=== PATIENT | male | born 1950 | race Two or more races ===

== ENCOUNTER 2021-07-07 22:08 | Inpatient (IN) | payer MEDICARE, BC ==
[~2021-07-07] VITALS: Ht 177.8 cm; Wt 83.9 kg
[2021-07-07] MEDS ORDERED: ACETAMINOPHEN ES 500 MG TABLET PO ONE (22:30)
[2021-07-07] MEDS ORDERED: ACETAMINOPHEN ES 500 MG TABLET ONE (22:30)
--- NOTE | 2021-07-07 22:35 | NUR ---
PATIENT BIBRA 99. C/O FEVER TODAY 99.9. PT HX OF LEUKEMIA W/ CHEMO. PATIENT IS A/O, RR EVEN AND UNLABORED, NO SOB NOTED. PATIENT CONNECTED TO VETERINARY MICROBIOLOGIST AND POX.
--- NOTE | 2021-07-07 22:46 | NUR ---
BLOOD WORK COLLECTED AND SENT TO LAB
--- NOTE | 2021-07-07 22:47 | NUR ---
URINE COLLECTED AND SENT TO LAB
--- NOTE | 2021-07-07 22:52 | NUR ---
COVID SWAB COLLECTED TO LAB
--- NOTE | 2021-07-07 23:04 | NUR ---
Note neyalexis in ED - 07/07/21 at 2306 by DODIE PT IS REFUSING A SECOND IV LINE AND BMP (BLOOD DRAW). HAD A LONG DISCUSSION WITH THE PT AT BED SIDE AND CONVIENCED THE PT FOR BMP. HOWEVER SHE'S STILL REFUSING THE SECOND LINE.
[2021-07-07 23:39] LABS: BILIRUBIN,URINE SMALL (NEGATIVE); COLOR,URINE YELLOW (YELLOW); LEUKOCYTE ESTERASE ,URINE NEGATIVE (NEGATIVE); NITRITE, URINE NEGATIVE (NEGATIVE); PROTEIN,URINE TRACE mg/dl (NEGATIVE); UGLUCOSE NEGATIVE (NEGATIVE); UROBILINOGEN,URINE 0.2 EU/dL (0.2)
[2021-07-08 00:06] LABS: ALBUMIN 2.4 g/dL (3.4-5.0); BILIRUBIN,DIRECT 0.2 mg/dL (0.0-0.2); BILIRUBIN,TOTAL 0.7 mg/dL (0.2-1.0); CALCIUM, SERUM 7.9 mg/dL (8.5-10.1); CREATININE 1.2 mg/dL (0.6-1.3); POTASSIUM 3.9 mmol/L (3.5-5.1); TOTAL PROTEIN, SERUM 7.6 g/dL (6.4-8.2)
[2021-07-08 00:32] LABS: BACTERIA,URINE None seen /HPF (None Seen); MUCUS,URINE Few /LPF (None Seen); RBC,URINE 0-2 /HPF (0-2); SQUAMOUS EPITHELIAL CELL,UR Few /HPF (None Seen); WBC,URINE 0-2 /HPF (0-3)
[2021-07-08 00:45] LABS: BASOPHILS % (AUTO) 0.1 % (0.0-2.0); EOSINOPHILS % (AUTO) 1.1 % (0.0-6.0); HEMATOCRIT 21 % (39-51); HEMOGLOBIN 7.4 g/dL (13.5-17.5); LYMPHOCYTES # (AUTO) 0.7 K/uL (0.8-4.8); LYMPHOCYTES % (AUTO) 23.4 % (20.0-44.0); MEAN CORPUSCULAR HGB CONC 36 g/dl (31.0-36.0); MEAN CORPUSCULAR VOLUME 104 fL (80-96); MONOCYTES # (AUTO) 1.4 K/uL (0.1-1.30); MONOCYTES % (AUTO) 51.3 % (2.0-12.0); NEUTROPHILS # (AUTO) 0.7 K/uL (1.8-8.9); NEUTROPHILS % (AUTO) 24.1 % (43.0-81.0); PLATELET COUNT (AUTO) 119 K/uL (150-450); RED BLOOD CELL COUNT(AUTO) 2.01 MIL/uL (4.5-6.0); WHITE BLOOD COUNT (AUTO) 2.8 K/uL (4.3-11.0)
--- NOTE | 2021-07-08 01:17 | NUR ---
ORAL TEMP 98.0
[2021-07-08] MEDS ORDERED: CEFEPIME 1 GM VIAL ONE (02:17)
[2021-07-08] MEDS: CEFEPIME 2 GM in IV D5W 100 ML IV SCH ×3 (02:23→18:18)
[2021-07-08] MEDS ORDERED: ACETAMINOPHEN 325 MG TABLET PO PRN (03:30)
[2021-07-08] MEDS ORDERED: ONDANSETRON HCL/PF 4 MG/2 ML VIAL IVP PRN (03:30)
[2021-07-08] MEDS ORDERED: ENOXAPARIN SODIUM 40 MG/0.4 ML DISP.SYRIN SQ ONE (04:46)
[2021-07-08] MEDS: ENOXAPARIN SODIUM 40 MG/0.4 ML DISP.SYRIN SQ SCH ×2 (04:47→20:24)
[2021-07-08 05:51] LABS: BAND % (MANUAL) 4 % (0.0-5.0); LYMPHOCYTES % (MANUAL) 18 % (16-48); METAMYELOCYTES % 4 % (0-0); MONOCYTES % (MANUAL) 42 % (0-11.0); MYELOCYTES % 4 % (0-0); NEUTROPHILS % (MANUAL) 24 (42-76); PROMYELOCYTES % 1 % (0-0); REACTIVE LYMPHOCYTES 3 % (0-0)
[2021-07-08 06:21] LABS: BASOPHILS % (AUTO) 0.1 % (0.0-2.0); HEMATOCRIT 22 % (39-51); HEMOGLOBIN 7.7 g/dL (13.5-17.5); LYMPHOCYTES # (AUTO) 0.8 K/uL (0.8-4.8); LYMPHOCYTES % (AUTO) 27.3 % (20.0-44.0); MEAN CORPUSCULAR HGB CONC 35 g/dl (31.0-36.0); MEAN CORPUSCULAR VOLUME 104 fL (80-96); MONOCYTES # (AUTO) 1.4 K/uL (0.1-1.30); NEUTROPHILS # (AUTO) 0.6 K/uL (1.8-8.9); NEUTROPHILS % (AUTO) 21.6 % (43.0-81.0); PLATELET COUNT (AUTO) 125 K/uL (150-450); RED BLOOD CELL COUNT(AUTO) 2.07 MIL/uL (4.5-6.0); WHITE BLOOD COUNT (AUTO) 2.8 K/uL (4.3-11.0)
[2021-07-08 07:30] LABS: CALCIUM, SERUM 8.9 mg/dL (8.5-10.1); CREATININE 1.1 mg/dL (0.6-1.3); MAGNESIUM 2.2 mg/dL (1.8-2.4); PHOSPHORUS 3.9 mg/dL (2.5-4.9); POTASSIUM 3.6 mmol/L (3.5-5.1)
[2021-07-08] MEDS ORDERED: NEBI5TAB8 PO (08:37)
[2021-07-08] MEDS: IV NS 0.9% 1,000 ML IV PRN (12:13)
--- NOTE | 2021-07-08 12:15 | NUR ---
RAC #20G S/L NS @ 75ML/HR; PATENT AND INTACT. OFFERED PATIENT LUNCH. VSS. ALL NEEDS MET AT THIS TIME
--- NOTE | 2021-07-08 14:36 | NUR ---
LAC #20G S/L; PATENT AND INTACT
[2021-07-08 14:49] LABS: LYMPHOCYTES % (MANUAL) 32 % (16-48); METAMYELOCYTES % 1 % (0-0); MONOCYTES % (MANUAL) 45 % (0-11.0); MYELOCYTES % 3 % (0-0); NEUTROPHILS % (MANUAL) 19 (42-76)
[2021-07-08] MEDS ORDERED: VENE100T PO (14:58)
--- NOTE | 2021-07-08 15:01 | NUR ---
UPDATED CAMILO (DAUGHTER) [phone] - [phone]
--- NOTE | 2021-07-08 16:45 | NUR ---
BED [id number]
--- NOTE | 2021-07-08 16:49 | NUR ---
CITY COLLECTOR AT PT'S BEDSIDE. GAVE HOME MEDS BYSTOLIC TO COLLIN BAEZ NURSE; MEDS WILL BE LEFT AT [facility].
--- NOTE | 2021-07-08 16:56 | NUR ---
ENDORSED CARE TO ELBA ANTONIO RN
--- NOTE | 2021-07-08 17:10 | NUR ---
ALICIA NEEDLE LOOM SETTER AT PT'S BEDSIDE
--- NOTE | 2021-07-08 17:16 | NUR ---
PT TRANSFERRED TO MS2 201 VIA ACLS PROTOCOL. ALL BELONGINGS WITH PT. VSS. PT ON NEURTROPENIC ISOLATION PRECAUTIONS AND ENDORSED TO RN AND HEAD RESIDENT.
--- NOTE | 2021-07-08 17:22 | NUR ---
LEFT VOICE MESSAGE TO CAMILO (DAUGHTER) [phone] - [phone] THAT PT TRANSFERRED TO 201
--- NOTE | 2021-07-08 17:25 | NUR ---
RN NOTES PATIENT TRANSFERRED TO DE-2 AT ROOM 201 VIA [facility], ACCOMPANIED BY 2 ER NURSES. PATIENT ABLE TO AMBULATE [place].
[2021-07-08] MEDS ORDERED: DOSE PER PHARMACY MICAFUNGIN 1 EA XX SCH (17:30)
[2021-07-08] MEDS ORDERED: CEFEPIME 1 GM in IV D5W 50 ML IV SCH (17:30)
[2021-07-08 17:40] LABS: D-DIMER 1.41 mg/L(FEU (0.17-0.50)
[2021-07-08] MEDS ORDERED: MICAFUNGIN SODIUM 100 MG in IV NS 0.9% 100 ML IV SCH (18:00)
[2021-07-08 18:10] LABS: URIC ACID 3.6 mg/dL (2.6-7.2)
[2021-07-08] MEDS: ACYCLOVIR 800 MG TABLET PO SCH (18:17)
[2021-07-08] MEDS: TBO-FILGRASTIM 480 MCG/0.8 ML ML SQ SCH (18:18)
[2021-07-08] MEDS: VANCOMYCIN 1 GM in IV D5W 250ml IV SCH (19:01)
--- NOTE | 2021-07-08 19:04 | NUR ---
RN NOTES ADMITTED THIS 71-Y.O. PATIENT FROM ER W/ CHIEF COMPLAINT OF FEVER AND ADMITTING DX OF ACUTE ANEMIA, NO BLEEDING NOTED. PATIENT IS A/O X3 CHINESE-SPEAKING, UNDERSTANDS GUINEAN AND ABLE TO MAKE NEEDS KNOWN. IV LINES INTACT AND PATENT. SKIN IS INTACT. AMBULATES W/ STAND-BY ASSIST, WENT TO THE BATHROOM, ABLE TO URINATE. ORIENTED PATIENT TO ROOM AND USE OF CALL LIGHT BUTTON FOR STAFF ASSISTANCE. SAFETY MEASURES IN PLACE. ENDORSED TO KID CLUB ATTENDANT RN FOR RANDOLPH.
[2021-07-08] MEDS: MICAFUNGIN SODIUM 100 MG in IV NS 0.9% 100 ML IV SCH (19:35)
[2021-07-08 20:00] VITALS: BP 144/76
[2021-07-08 22:00] VITALS: BP 144/76
[2021-07-09] VITALS: BP 99/65
[2021-07-09] MEDS: CEFEPIME 2 GM in IV D5W 100 ML IV SCH ×3 (01:51→16:46)
--- NOTE | 2021-07-09 02:06 | NUR ---
IV ON THE LEFT HAND PULLED OUT BY THE PATIENT.
[2021-07-09 04:00] VITALS: BP 91/58
[2021-07-09] MEDS: IV NS 0.9% 1,000 ML IV PRN (05:25)
[2021-07-09] MEDS: VANCOMYCIN 1 GM in IV D5W 250ml IV SCH ×2 (05:25→18:29)
[2021-07-09 06:43] LABS: BASOPHILS % (AUTO) 0.1 % (0.0-2.0); EOSINOPHILS % (AUTO) 0.1 % (0.0-6.0); HEMATOCRIT 21 % (39-51); HEMOGLOBIN 7.5 g/dL (13.5-17.5); LYMPHOCYTES # (AUTO) 0.6 K/uL (0.8-4.8); LYMPHOCYTES % (AUTO) 12.9 % (20.0-44.0); MEAN CORPUSCULAR HGB CONC 35 g/dl (31.0-36.0); MEAN CORPUSCULAR VOLUME 105 fL (80-96); MONOCYTES % (AUTO) 43.7 % (2.0-12.0); NEUTROPHILS % (AUTO) 43.2 % (43.0-81.0); PLATELET COUNT (AUTO) 120 K/uL (150-450); RED BLOOD CELL COUNT(AUTO) 2.02 MIL/uL (4.5-6.0); WHITE BLOOD COUNT (AUTO) 4.6 K/uL (4.3-11.0)
[2021-07-09 07:15] LABS: CALCIUM, SERUM 8.6 mg/dL (8.5-10.1); POTASSIUM 3.7 mmol/L (3.5-5.1)
--- NOTE | 2021-07-09 07:30 | NUR ---
RN OPENING NOTE RECEIVED PATIENT RESTING IN BED A/O X 3. ON ROOM AIR, PATIENT REMOVED IV ON LAC. NO CURRENT COMPLAINTS OF PAIN OR SOB. ALL SAFETY MEASURE IN PLACE, CALL LIGHT WITHIN REACH BED IN THE LOWEST POSITION AND 2 SIDE RAILS UP, BED ALARM ACTIVATED.
[2021-07-09] MEDS: BYSTOLIC 5 MG PO SCH (08:03)
[2021-07-09] MEDS: ACYCLOVIR 800 MG TABLET PO SCH ×2 (08:03→16:46)
[2021-07-09 08:55] LABS: BILIRUBIN,DIRECT 0.2 mg/dL (0.0-0.2); BILIRUBIN,TOTAL 0.7 mg/dL (0.2-1.0); TOTAL PROTEIN, SERUM 6.7 g/dL (6.4-8.2)
[2021-07-09 12:00] VITALS: BP 96/61
[2021-07-09 16:00] VITALS: BP 92/65
--- NOTE | 2021-07-09 16:41 | NUR ---
RN NOTE SECOND ATTEMPT TO REACH FAMILY REGARDING PATIENTS MEDICATION BYSTOLIC. LEFT MESSAGE AGAIN FOR FAMILY TO CALL BACK. PATIENTS FAMILY NEEDS TO BRING MEDICATION FROM HOME
[2021-07-09] MEDS: TBO-FILGRASTIM 480 MCG/0.8 ML ML SQ SCH (16:46)
[2021-07-09] MEDS ORDERED: VENETOCLAX 100 MG PO SCH (17:00)
--- NOTE | 2021-07-09 18:55 | NUR ---
RN CLOSING NOTE RECEIVED PATIENT RESTING IN BED A/O X 2. ON ROOM AIR, RIGHT AC 24 G RUNNING 75ML/ HR OF NS. NO CURRENT COMPLAINTS OF PAIN OR SOB. PATIENT IN RESTRAINTS DUE TO INTERFERENCE WITH MEDICAL INTERVENTIONS. ALL SCHEDULED MEDICATION WERE GIVEN. ALL SAFETY MEASURE IN PLACE, CALL LIGHT WITHIN REACH BED IN THE LOWEST POSITION AND 2 SIDE RAILS UP, BED ALARM ACTIVATED. WILL ENDORSE TO NIGHT NURSE FOR RANDOLPH.
--- NOTE | 2021-07-09 19:40 | NUR ---
SUPERVISOR METER REPAIR SHOP OPENING NOTE PATIENT AWAKE IN BED, ALERT/ORIENTED X 1-2, PT CONFUSED AT TIMES. PT STABLE ON RA, NO S/S OF DISTRESS OR SOB NOTED, BREATHING EVEN AND UNLABORED. PATIENT ON EXTERNAL LEAD PERSON READING A PACING. IV ACCESS ON RIGHT AC #24 G INTACT AND RUNNING NS @ 75 ML/HR. PATIENT ON BILATERAL SOFT WRIST RESTRAINTS, ASSESSED SKIN FOR REDNESS AND REMOVED RESTRAINTS FOR A COUPLE MINUTES. SAFETY MEASURES IN PLACE: CALL LIGHT WITHIN REACH, SIDE RAILS UP X 2, BED LOCKED IN LOW POSITION, BED ALARM ON. WILL CONTINUE TO MONITOR PATIENT
[2021-07-09 20:00] VITALS: BP 135/51
[2021-07-09] MEDS: MICAFUNGIN SODIUM 100 MG in IV NS 0.9% 100 ML IV SCH (20:14)
[2021-07-09 21:36] LABS: BAND % (MANUAL) 2 % (0.0-5.0); LYMPHOCYTES % (MANUAL) 31 % (16-48); MONOCYTES % (MANUAL) 21 % (0-11.0); NEUTROPHILS % (MANUAL) 46 (42-76)
[2021-07-10] VITALS: BP 127/80
[2021-07-10] MEDS: ENOXAPARIN SODIUM 40 MG/0.4 ML DISP.SYRIN SQ SCH ×2 (00:07→21:38)
[2021-07-10] MEDS: CEFEPIME 2 GM in IV D5W 100 ML IV SCH ×3 (01:50→16:57)
[2021-07-10 04:00] VITALS: BP 130/72
--- NOTE | 2021-07-10 07:30 | NUR ---
TELE CLOSING NOTES PATIENT AWAKE IN BED, ALERT/ORIENTED X 1-2, PT CONFUSED AT TIMES AND ATTEMPTS TO GET OUT OF BED. PT STABLE ON RA, NO S/S OF DISTRESS OR SOB NOTED, BREATHING EVEN AND UNLABORED. PATIENT ON EXTERNAL PRODUCT DEVELOPMENT ASSISTANT READING SINUS RHYTHM WITH PAC'S AND PVC'S, HR: 86. IV ACCESS ON RIGHT AC #24 G INTACT AND RUNNING NS @ 75 ML/HR. PATIENT ON BILATERAL SOFT WRIST RESTRAINTS, ASSESSED SKIN FOR REDNESS AND REMOVED RESTRAINTS THROUGHOUT SHIFT. MEDICATIONS GIVEN ORDERED, PT NEEDS MET THROUGHOUT SHIFT. VANCO TROUGH STILL PENDING, ENDORSED VANCO ADMINISTRATION TO DAY SHIFT NURSE. SAFETY MEASURES IN PLACE: CALL LIGHT WITHIN REACH, SIDE RAILS UP X 2, BED LOCKED IN LOW POSITION, BED ALARM ON. WILL CONTINUE TO MONITOR PATIENT. ENDORSED TO DAY SHIFT NURSE FOR CONTINUITY OF CARE
--- NOTE | 2021-07-10 07:30 | NUR ---
LOAN ADVISER OPENING NOTES RECEIVED PATIENT ON BED AND A/O X1-2 WITH EPISODES OF CONFUSION. ON ROOM AIR TOLERATING WELL. NO SOB NOTED. NOT IN DISTRESS. WITH NO COMPLAINTS OF PAIN AT THIS TIME. WITH IV ACCESS AT RIGHT AC G24 WITH NS AT 75ML/HR. SAFETY MEASURES IN PLACED. CALL LIGHT WITHIN REACH. BED ON LOWEST LOCKED POSITION, SIDE RAILS UP X2. WILL CONTINUE TO MONITOR.
[2021-07-10 08:00] VITALS: BP 89/63
[2021-07-10] MEDS: VANCOMYCIN 1 GM in IV D5W 250ml IV SCH ×2 (08:40→17:54)
[2021-07-10] MEDS: ACYCLOVIR 800 MG TABLET PO SCH ×2 (08:41→16:58)
[2021-07-10] MEDS: BYSTOLIC 5 MG PO SCH (08:41)
[2021-07-10] MEDS ORDERED: Medication Not On Formulary EA (Nebivolol Hcl (Bystolic) 5 MG) PO SCH (09:00)
[2021-07-10 10:27] LABS: HEMOGLOBIN 8.5 g/dL (13.5-17.5); RED BLOOD CELL COUNT(AUTO) 2.33 MIL/uL (4.5-6.0)
[2021-07-10 11:19] LABS: HEMATOCRIT 25 % (39-51); MEAN CORPUSCULAR HGB CONC 35 g/dl (31.0-36.0); MEAN CORPUSCULAR VOLUME 106 fL (80-96); PLATELET COUNT (AUTO) 143 K/uL (150-450); WHITE BLOOD COUNT (AUTO) 12.2 K/uL (4.3-11.0)
[2021-07-10 12:43] LABS: BAND % (MANUAL) 3 % (0.0-5.0); LYMPHOCYTES % (MANUAL) 20 % (16-48); METAMYELOCYTES % 1 % (0-0); MONOCYTES % (MANUAL) 23 % (0-11.0); MYELOCYTES % 2 % (0-0); NEUTROPHILS % (MANUAL) 51 (42-76)
[2021-07-10] MEDS: IV NS 0.9% 1,000 ML IV PRN (13:55)
[2021-07-10 16:00] VITALS: BP 98/73
[2021-07-10 17:40] LABS: CALCIUM, SERUM 8.6 mg/dL (8.5-10.1); CARBON DIOXIDE 17 mmol/L (21-32); CHLORIDE 103 mmol/L (98-107); CREATININE 1.4 mg/dL (0.6-1.3); GLUCOSE 135 mg/dL (74-106); POTASSIUM 3.9 mmol/L (3.5-5.1); SODIUM SERUM 138 mmol/L (136-145); UREA NITROGEN, BLOOD 21 mg/dL (7-18)
--- NOTE | 2021-07-10 18:21 | NUR ---
CANDY ROLLER CLOSING NOTES PATIENT RESTING ON BED AND A/O X1-2 WITH EPISODES OF CONFUSION. ON ROOM AIR TOLERATING WELL. NO SOB NOTED. NOT IN DISTRESS. WITH NO COMPLAINTS OF PAIN AT THIS TIME. WITH IV ACCESS AT RIGHT HAND G22, SALINE LOCKED, PATENT AND INTACT AND AT LEFT UPPER ARM MIDLINE G18 WITH NS AT 75ML/HR INFUSING WELL. ON TELE MONITOR CURRENTLY READING SINUS RHYTHM AT 92BPM. DUE MEDS GIVEN. FOR DISCHARGE, AWAITING FOR O2 DELIVERY. SAFETY MEASURES IN PLACED. CALL LIGHT WITHIN REACH. BED ON LOWEST LOCKED POSITION, SIDE RAILS UP X2. WILL ENDORSE TO NEXT SHIFT FOR RANDOLPH.
--- NOTE | 2021-07-10 19:35 | NUR ---
CLIMATOLOGY PROFESSOR NOTES SR-96 ON TELE MONITOR,ON BED ON HIGH FOWLERS POSITION,BREATHING NON LABORED,975 ROOM AIR,WITH RIGHT UPPER ARM MIDLINE INFUSING NS75ML/HR RATE,RIGHT HAND SALINE LOCK INTACT AND PATENT.SLEEPING,AROUSABLE TO VERBAL STIMULI,WITH EPISODE OF CONFUSION,PLAN LUMBAR PUCTURE TO R/O CONFUSION, MENTAL STATUS DOES NOT IMPROVE,WILL CONTINUE TO MONITOR STATUS.
[2021-07-10] MEDS: MICAFUNGIN SODIUM 100 MG in IV NS 0.9% 100 ML IV SCH (19:37)
[2021-07-10 20:00] VITALS: BP 104/72
[2021-07-10 20:16] VITALS: BP 104/72
[2021-07-11] VITALS: BP 107/61
[2021-07-11] MEDS: CEFEPIME 2 GM in IV D5W 100 ML IV SCH ×3 (01:15→16:45)
[2021-07-11 04:00] VITALS: BP_SYST 107; BP_SYST 92; BP_DIAS 61
[2021-07-11] MEDS: VANCOMYCIN 1 GM in IV D5W 250ml IV SCH ×2 (05:24→17:40)
--- NOTE | 2021-07-11 06:15 | NUR ---
SHIFT BOSS NOTES ALL DUE IV MEDS ADMINISTERED,REMAINS CONFUSED.PLANNED XRAY LUMBAR PUNTURE AND SENT CSF FLUIDS TO LAB FOR CYTOLOGY,NEEDS CONSENT FOR THE PROCEDURE.PATIENT CONFUSED,CANT SIGNED.WILL ENDORSE TO VIRGIE FERRARA FOR RANDOLPH.
--- NOTE | 2021-07-11 07:46 | NUR ---
RAILROAD POLICE OPENING NOTES RECEIVED PATIENT IN BED, AWAKE, CONFUSED, ON BILATERAL SOFT WRIST RESTRAINS. PATIENT ON OXYGEN THERAPY AT 2 LPM VIA NASAL CANNULA; BREATHING EVEN AND UNLABORED; NO SOB NOTED. NO S/S OF PAIN SUCH FACIAL GRIMACING, MOANING OR GUARDING. TELE MONITOR WITH A CURRENT READING OF SR 90. SAMANTHA MIDLINE PRESENT AND INTACT RUNNING NS @ 75 MLS/HR. SAFETY PRECAUTIONS IN PLACE; BED IN LOW POSITION AND LOCKED, RAILS UP X2, CALL LIGHT WITHIN REACH. WILL CONTINUE TO MONITOR PATIENT.
[2021-07-11 08:00] VITALS: BP 106/67
[2021-07-11 08:15] LABS: HEMATOCRIT 22 % (39-51); HEMOGLOBIN 7.5 g/dL (13.5-17.5); MEAN CORPUSCULAR HGB CONC 34 g/dl (31.0-36.0); MEAN CORPUSCULAR VOLUME 106 fL (80-96); PLATELET COUNT (AUTO) 137 K/uL (150-450); RED BLOOD CELL COUNT(AUTO) 2.09 MIL/uL (4.5-6.0); WHITE BLOOD COUNT (AUTO) 11.1 K/uL (4.3-11.0)
[2021-07-11] MEDS: BYSTOLIC 5 MG PO SCH (08:43)
[2021-07-11] MEDS: ACYCLOVIR 800 MG TABLET PO SCH ×2 (08:49→17:00)
[2021-07-11] MEDS ORDERED: LORAZEPAM INJ 2 MG/ML VIAL IV ONE (10:00)
[2021-07-11 12:00] VITALS: BP 101/62
--- NOTE | 2021-07-11 14:22 | NUR ---
CARBON FURNACE OPERATOR HELPER NOTES PATIENT NOTED ON MONITOR GOING INTO HIGH HR OF 130S 140S FOR A FEW SECONDS AND THEN COMING BACK DOWN TO NSR 80S 90S. MD NOTIFIED. STAT EKG ORDERED.
[2021-07-11 14:28] LABS: CSF GLUCOSE 91 mg/dL (40-70)
--- NOTE | 2021-07-11 15:17 | NUR ---
MS RN NOTES EKG READINGS SENT TO MD AND LITHOGRAPHER HELPER DR SANTOS. PER CARDIOLOGY TO START METOPROLOL 50 EVERY 6 HRS.
[2021-07-11] MEDS: METOPROLOL TARTRATE 50 MG TABLET PO SCH ×2 (15:40→18:00)
[2021-07-11 16:00] VITALS: BP 111/79
[2021-07-11] MEDS: ENSURE ENLIVE 237 ML LIQUID (VANILLA) PO SCH (16:03)
--- NOTE | 2021-07-11 18:57 | NUR ---
RESIDENTIAL REAL ESTATE AGENT CLOSING NOTES PATIENT IN BED, ASLEEP, CONFUSED, ON BILATERAL SOFT WRIST RESTRAINS. PATIENT ON OXYGEN THERAPY AT 2 LPM VIA NASAL CANNULA; BREATHING EVEN AND UNLABORED WITH PERIODS OF LABORED BREATHING . NO S/S OF PAIN SUCH FACIAL GRIMACING, MOANING OR GUARDING DURING THE DAY. TELE MONITOR WITH A CURRENT READING OF SR -ST 83-145 . SAMANTHA MIDLINE PRESENT AND INTACT RUNNING NS @ 75 MLS/HR. ALL NEEDS ATTENDED DURING THE DAY. SAFETY PRECAUTIONS IN PLACE; BED IN LOW POSITION AND LOCKED, RAILS UP X2, CALL LIGHT WITHIN REACH. WILL ENDORSE TO FLATCAR WHACKER NURSE FOR RANDOLPH.
--- NOTE | 2021-07-11 19:10 | NUR ---
RN NOTES RECEIVED REPORT FROM MORNING RN. PATIENT IN BED A/O X1 OPENS EYES. ON OXYGEN AT 2LPM VIA NASAL CANULA TOLERATING WELL SATING 95%. WITH SAMANTHA MIDLINE [ATENT FLUSHES WELL. WITH ONGOING IVF OF PNS @75CC/HR. VITAL SIGNS TAKEN AND RECORDED AFEBRILE. WITH BILATERAL SOFT RESTRAINTS IN PLACE. ALL SAFETY MEASURES IN PLACE. HOB ELEVATED. CALL LIGHT WITHIN REACH. BED ON LOWEST POSITION AND LOCKED. SIDERAILS UP FOR SAFETY. WILL MONITOR PATIENT CLOSELY.
[2021-07-11 20:00] VITALS: BP 105/70
[2021-07-11] MEDS: MICAFUNGIN SODIUM 100 MG in IV NS 0.9% 100 ML IV SCH (20:21)
[2021-07-11] MEDS: ENOXAPARIN SODIUM 40 MG/0.4 ML DISP.SYRIN SQ SCH (21:23)
[2021-07-11 22:16] LABS: BAND % (MANUAL) 2 % (0.0-5.0); LYMPHOCYTES % (MANUAL) 17 % (16-48); METAMYELOCYTES % 2 % (0-0); MONOCYTES % (MANUAL) 28 % (0-11.0); MYELOCYTES % 1 % (0-0); NEUTROPHILS % (MANUAL) 50 (42-76)
[2021-07-11] MEDS: IV NS 0.9% 1,000 ML IV PRN (22:56)
[2021-07-12] VITALS: BP 96/68
[2021-07-12] MEDS: CEFEPIME 2 GM in IV D5W 100 ML IV SCH ×3 (02:39→17:22)
[2021-07-12 04:00] VITALS: BP 98/68
--- NOTE | 2021-07-12 05:30 | NUR ---
RN NOTES CALLED LABORATORY SPOKE TO HORACE PATIENT HAS AN ORDER FOR VANCO TROUGH @5AM HE SAID HE WILL CALL THE CLAIMS COLLECTOR TO COME AND DRAW BLOOD.
[2021-07-12] MEDS: METOPROLOL TARTRATE 50 MG TABLET PO SCH ×5 (06:00→23:48)
--- NOTE | 2021-07-12 06:10 | NUR ---
RN NOTES CALLED LABORATORY FOR 2ND TIME SPOKE TO MARIO ABOUT VANCO TROUGH SAID SHE WILL INFORMED THE MORNING LAB MANAGER TO COME AND DRAW BLOOD. WILL CONTINUE TO MONITOR
--- NOTE | 2021-07-12 06:38 | NUR ---
RN NOTES PATIENT IN BED OPENS EYES WHEN CALLED. STILL ON OXYGEN INHALATION AT 4LPM VIA NC SATING 95%. ALL DUE MEDS GIVEN ORDERED. PATIENT STILL HAS AN EPISODE OF ELEVATED HR FROM 120'S THEN GOES BACK TO SR. PATIENT HAS AN PACEMAKER. PATIENT STILL ON RESTRAINTS. FREQUENT VISUAL MONITORING RENDERED. ALL SAFETY MEASURES IN PLACE AT ALL TIMES. HOB ELEVATED. CALL LIGHT WITHIN REACH SIDE RAILS UP FOR SAFETY. ENDORSED.
--- NOTE | 2021-07-12 07:30 | NUR ---
RN OPENING NOTES RECEIVED PATIENT IN BED SLEEPING. BREATHING EVEN AND UNLABORED. NO OSB OR ANY ACUTE DISTRESS NOTED. ON OXYGEN AT 2LPM VIA NASAL CANULA TOLERATING WELL SATING 95%. WITH SAMANTHA MIDLINE PATENT FLUSHES WELL. WITH ONGOING IVF OF NS @75CC/HR. WITH BILATERAL SOFT RESTRAINTS IN PLACE. ALL APPLICABLE ISOLATION PRECAUTIONS IN PLACE. ALL SAFETY MEASURES IN PLACE. HOB ELEVATED. CALL LIGHT WITHIN REACH. BED ON LOWEST POSITION AND LOCKED. SIDERAILS UP FOR SAFETY. WILL MONITOR PATIENT CLOSELY.
[2021-07-12 08:00] VITALS: BP 95/65
[2021-07-12] MEDS: ACYCLOVIR 800 MG TABLET PO SCH (08:35)
[2021-07-12] MEDS: BYSTOLIC 5 MG PO SCH (08:35)
[2021-07-12] MEDS: ENSURE ENLIVE 237 ML LIQUID (VANILLA) PO SCH ×2 (08:42→17:52)
[2021-07-12 09:23] LABS: HEMATOCRIT 23 % (39-51); HEMOGLOBIN 7.7 g/dL (13.5-17.5); LYMPHOCYTES # (AUTO) 0.6 K/uL (0.8-4.8); NEUTROPHILS # (AUTO) 2.1 K/uL (1.8-8.9)
[2021-07-12 09:25] LABS: BASOPHILS % (AUTO) 0.4 % (0.0-2.0); EOSINOPHILS % (AUTO) 1.3 % (0.0-6.0); MEAN CORPUSCULAR HGB CONC 34 g/dl (31.0-36.0); MEAN CORPUSCULAR VOLUME 107 fL (80-96); MONOCYTES % (AUTO) 51.5 % (2.0-12.0); NEUTROPHILS % (AUTO) 36.8 % (43.0-81.0); PLATELET COUNT (AUTO) 108 K/uL (150-450); RED BLOOD CELL COUNT(AUTO) 2.15 MIL/uL (4.5-6.0); WHITE BLOOD COUNT (AUTO) 5.7 K/uL (4.3-11.0)
[2021-07-12] MEDS: DEXAMETHASONE SOD PHOSPHATE 10 MG/ML VIAL IV SCH (09:44)
[2021-07-12 10:11] LABS: LYMPHOCYTES % (MANUAL) 18 % (16-48); MONOCYTES % (MANUAL) 41 % (0-11.0); NEUTROPHILS % (MANUAL) 41 (42-76)
[2021-07-12 11:54] LABS: ALBUMIN 1.6 g/dL (3.4-5.0); BILIRUBIN,DIRECT 0.2 mg/dL (0.0-0.2); BILIRUBIN,TOTAL 0.7 mg/dL (0.2-1.0); CALCIUM, SERUM 8.3 mg/dL (8.5-10.1); CALCIUM, SERUM 9.1 mg/dL (8.5-10.1); CREATININE 1.3 mg/dL (0.6-1.3); POTASSIUM 4.1 mmol/L (3.5-5.1); TOTAL PROTEIN, SERUM 6.6 g/dL (6.4-8.2)
[2021-07-12 12:00] VITALS: BP 97/73
--- NOTE | 2021-07-12 14:15 | NUR ---
RN NOTES RECEIVED REPORT FROM LAB OF TROPONIN LEVEL 23.255. INFORMED DR. KAMARA OF RESULT, NO NEW ORDER AT THE TIME.
--- NOTE | 2021-07-12 15:27 | NUR ---
RN NOTE CALLED [facility] OFFICE, OFFICE IS CLOSE ON WEEKEND.
[2021-07-12 16:00] VITALS: BP 93/63
[2021-07-12] MEDS ORDERED: REMDESIVIR (CHARGED) 200 MG, *LOADING DOSE 1 EA in IV NS 0.9% 210 ML IV ONE (16:00)
--- NOTE | 2021-07-12 18:51 | NUR ---
RN CLOSING NOTES PATIENT REMAINS IN STABLE CONDITION THROUGHOUT SHIFT. BREATHING EVEN AND UNLABORED. NO SOB OR ANY ACUTE DISTRESS NOTED. ON O2 2LPM VIA NC, TOLERATING WELL SAT OF 94%. KEPT PATIENT CLEAN, DRY AND COMFORTABLE. ALL NEEDS MET. ALL DUE MEDS GIVEN ORDERED. ALL APPLICABLE ISOLATION PRECAUTIONS MAINTAINED. ALL SAFETY MEASURES IMPLEMENTED. HOB ELEVATED. CALL LIGHT WITHIN REACH. BED LOCKED AND IN LOWEST POSITION . CALL LIGHT WITHIN REACH OF PATIENT. WILL ENDORSE TO ONCOMING NURSE FOR CONTINUITY OF CARE. Addendum: 07/12/21 at 1903 by JOSE RAUL RAZO RN PATIENT ON O2 4LPM VIA NC.
[2021-07-12 20:00] VITALS: BP 111/68
[2021-07-12] MEDS: ENOXAPARIN SODIUM 40 MG/0.4 ML DISP.SYRIN SQ SCH (21:26)
[2021-07-13] VITALS (7 sets, daily range): BP systolic 90–96; BP diastolic 55–93
--- NOTE | 2021-07-13 01:15 | NUR ---
Pt. B/P on-call notified ordered albumin 25% 25gm x1 and stat cortisol level. noted and carried out.
[2021-07-13] MEDS ORDERED: ALBUMIN 25% 12.5 GM/50 ML BOTTLE IV ONE (02:00)
[2021-07-13] MEDS ORDERED: CEFEPIME 1 GM VIAL ONE (02:18)
[2021-07-13] MEDS ORDERED: ALBUMIN 25% 100 ML IV ONE (02:18)
[2021-07-13] MEDS: CEFEPIME 2 GM in IV D5W 100 ML IV SCH ×3 (03:15→16:30)
--- NOTE | 2021-07-13 04:43 | NUR ---
B/P up to only. Asymptomatic resting in bed at this time but alert to voice and touch.
[2021-07-13] MEDS: METOPROLOL TARTRATE 50 MG TABLET PO SCH ×3 (06:00→17:00)
--- NOTE | 2021-07-13 06:50 | NUR ---
RN CLOSING NOTES Patient is A&Ox1 and confused. Restraints checked, released, and ROM activity provided q2h. Pt. needs anticipated. asymptomatic from low B/P. Went up to low 90s pts. baseline.
[2021-07-13] MEDS: ENSURE ENLIVE 237 ML LIQUID (VANILLA) PO SCH ×2 (08:00→16:13)
[2021-07-13 08:06] LABS: BASOPHILS % (AUTO) 0.2 % (0.0-2.0); EOSINOPHILS % (AUTO) 0.1 % (0.0-6.0); HEMATOCRIT 22 % (39-51); HEMOGLOBIN 7.4 g/dL (13.5-17.5); LYMPHOCYTES # (AUTO) 0.4 K/uL (0.8-4.8); LYMPHOCYTES % (AUTO) 12.2 % (20.0-44.0); MEAN CORPUSCULAR HGB CONC 34 g/dl (31.0-36.0); MEAN CORPUSCULAR VOLUME 107 fL (80-96); MONOCYTES % (AUTO) 58.9 % (2.0-12.0); NEUTROPHILS % (AUTO) 28.6 % (43.0-81.0); PLATELET COUNT (AUTO) 84 K/uL (150-450); RED BLOOD CELL COUNT(AUTO) 2.04 MIL/uL (4.5-6.0); WHITE BLOOD COUNT (AUTO) 3.4 K/uL (4.3-11.0)
[2021-07-13] MEDS: DEXAMETHASONE SOD PHOSPHATE 10 MG/ML VIAL IV SCH (08:08)
[2021-07-13 08:51] LABS: ALBUMIN 1.8 g/dL (3.4-5.0); BILIRUBIN,TOTAL 0.7 mg/dL (0.2-1.0); CALCIUM, SERUM 8.2 mg/dL (8.5-10.1); CREATININE 1.2 mg/dL (0.6-1.3); POTASSIUM 3.7 mmol/L (3.5-5.1); TOTAL PROTEIN, SERUM 6.3 g/dL (6.4-8.2)
[2021-07-13] MEDS: BYSTOLIC 5 MG PO SCH (09:00)
[2021-07-13 09:45] LABS: BAND % (MANUAL) 3 % (0.0-5.0); LYMPHOCYTES % (MANUAL) 18 % (16-48); METAMYELOCYTES % 3 % (0-0); MONOCYTES % (MANUAL) 50 % (0-11.0); MYELOCYTES % 4 % (0-0); NEUTROPHILS % (MANUAL) 21 (42-76); PROMYELOCYTES % 1 % (0-0)
[2021-07-13] MEDS: ACYCLOVIR 800 MG TABLET PO SCH ×2 (10:00→16:41)
[2021-07-13] MEDS: FLUCONAZOLE (100 MG) 100 MG TABLET PO SCH (10:00)
--- NOTE | 2021-07-13 10:13 | NUR ---
RN NOTES PATIENT SEEN BY DR. RAMACHANDRAN TODAY W/ ORDERS NOTED.
[2021-07-13] MEDS: ALBUMIN 25% 25 GM in PREMIX 1 EA IV SCH ×2 (10:59→22:23)
--- NOTE | 2021-07-13 11:10 | NUR ---
RN NOTES TECH AT BEDSIDE FOR EEG PROCEDURE.
[2021-07-13 11:12] LABS: THYROID STIMULATING HORMONE 1.44 uIU/mL (0.358-3.74)
--- NOTE | 2021-07-13 11:29 | NUR ---
RN NOTES ALBUMIN CURRENTLY INFUSING FIRST.
[2021-07-13] MEDS: FUROSEMIDE 40 MG/4 ML VIAL IV SCH (12:20)
--- NOTE | 2021-07-13 14:55 | NUR ---
RN NOTES INSERTED EXTERNAL CONDOM CATH; ABLE TO DRAIN URINE OF YELLOW COLOR.
[2021-07-13] MEDS: REMDESIVIR (CHARGED) 100 MG in IV NS 0.9% 100 ML IV SCH (14:59)
--- NOTE | 2021-07-13 17:54 | NUR ---
RN NOTES PATIENT IN BED RESTING, CONTINUES ON O2 VIA NC AT 4LPM; OCCASIONAL COUGH NOTED, NON-PRODUCTIVE; NO RESPIRATORY DISTRESS. IV ATB ADMINISTERED INDICATED. B/L SOFT WRIST RESTRAINTS ON AT THIS TIME, RELEASED AT INTERVALS DURING THE DAY, CHECKED CIRCULATION. PATIENT HAD FACETIME VIDEO CALL W/ , MADE AWARE OF CURRENT CONDITION. CONDOM CATH INTACT. SAFETY MEASURES MAINTAINED.
--- NOTE | 2021-07-13 19:20 | NUR ---
TELE/RN OPENING NOTE RECEIVED PATIENT RESTING IN BED. AWAKE, ALERT AND ORIENTED X 1. NO S/SX OF PAIN NOTED AT THIS TIME. CONTINUES ON O2 4L VIA NC WITH NO S/SX OF RESPIRATORY DISTRESS NOTED. NON-PRODUCTIVE COUGH NOTED. CONTINUES ON TELE MONITOR WITH CURRENT READING A - PACING HR 70. IV ACCESS TO LEFT UPPER ARM MIDLINE INTACT, PATENT AND SALINE LOCKED. CONTINUES ON CARDIAC DIET WITH NO S/SX OF ASPIRATION NOTED. CONTINUES ON BILATERAL SOFT WRIST RESTRAINTS WITH POSITIVE CIRCULATION NOTED. NO S/SX OF SKIN ISSUES AT THIS TIME. CALL LIGHT WITHIN REACH. ASPIRATION, FALL AND SAFETY PRECAUTIONS MAINTAINED. WILL CONTINUE TO MONITOR.
[2021-07-13] MEDS: ENOXAPARIN SODIUM 40 MG/0.4 ML DISP.SYRIN SQ SCH (21:00)
[2021-07-14] VITALS: BP 99/59
[2021-07-14] MEDS: CEFEPIME 2 GM in IV D5W 100 ML IV SCH ×3 (01:47→17:15)
[2021-07-14 04:00] VITALS: BP 93/64
[2021-07-14] MEDS: METOPROLOL TARTRATE 50 MG TABLET PO SCH ×4 (06:00→18:33)
--- NOTE | 2021-07-14 06:20 | NUR ---
TELE/RN CLOSING NOTE PATIENT RESTING IN BED. AWAKE, ALERT AND ORIENTED X 1. NO S/SX OF PAIN NOTED AT THIS TIME. CONTINUES ON O2 4L VIA NC WITH NO S/SX OF RESPIRATORY DISTRESS NOTED. NON-PRODUCTIVE COUGH NOTED. CONTINUES ON TELE MONITOR WITH CURRENT READING A - PACING. IV ACCESS TO LEFT UPPER ARM MIDLINE INTACT, PATENT AND SALINE LOCKED. CONTINUES ON CARDIAC DIET WITH NO S/SX OF ASPIRATION NOTED. CONTINUES ON BILATERAL SOFT WRIST RESTRAINTS WITH POSITIVE CIRCULATION NOTED. NO S/SX OF SKIN ISSUES AT THIS TIME. CALL LIGHT WITHIN REACH. ASPIRATION, FALL AND SAFETY PRECAUTIONS MAINTAINED. WILL ENDORSE PLAN OF CARE TO ON COMING SHIFT.
[2021-07-14 07:31] LABS: ALBUMIN 2.3 g/dL (3.4-5.0); BILIRUBIN,DIRECT 0.3 mg/dL (0.0-0.2); BILIRUBIN,TOTAL 0.8 mg/dL (0.2-1.0); TOTAL PROTEIN, SERUM 6.8 g/dL (6.4-8.2)
[2021-07-14 07:45] LABS: BASOPHILS % (AUTO) 0.3 % (0.0-2.0); EOSINOPHILS % (AUTO) 2.2 % (0.0-6.0); HEMATOCRIT 21 % (39-51); HEMOGLOBIN 7.2 g/dL (13.5-17.5); LYMPHOCYTES # (AUTO) 0.5 K/uL (0.8-4.8); LYMPHOCYTES % (AUTO) 18.6 % (20.0-44.0); MEAN CORPUSCULAR HGB CONC 35 g/dl (31.0-36.0); MEAN CORPUSCULAR VOLUME 106 fL (80-96); MONOCYTES # (AUTO) 1.5 K/uL (0.1-1.30); MONOCYTES % (AUTO) 51.5 % (2.0-12.0); NEUTROPHILS # (AUTO) 0.8 K/uL (1.8-8.9); NEUTROPHILS % (AUTO) 27.4 % (43.0-81.0); PLATELET COUNT (AUTO) 80 K/uL (150-450); WHITE BLOOD COUNT (AUTO) 2.8 K/uL (4.3-11.0)
[2021-07-14 07:51] LABS: RED BLOOD CELL COUNT(AUTO) 1.94 MIL/uL (4.5-6.0)
[2021-07-14 08:00] VITALS: BP 100/66
[2021-07-14] MEDS: ENSURE ENLIVE 237 ML LIQUID (VANILLA) PO SCH ×2 (08:00→16:37)
--- NOTE | 2021-07-14 08:05 | NUR ---
FILER REPAIRER OPENING NOTE PATIENT RESTING IN BED. AWAKE, CONFUSED. NO S/SX OF PAIN NOTED AT THIS TIME. PATIENT ON O2 4L VIA NC WITH NO S/SX OF RESPIRATORY DISTRESS NOTED. TELE MONITOR WITH CURRENT READING A - PACING. IV ACCESS TO LEFT UPPER ARM MIDLINE INTACT, PATENT AND SALINE LOCKED. ON BILATERAL SOFT WRIST RESTRAINTS WITH POSITIVE CIRCULATION NOTED. NO S/SX OF SKIN ISSUES AT THIS TIME. CONDOM CATH IN PLACE DRAINING YELLOW URINE. SAFETY PRECAUTIONS IN PLACE; BED IN LOW POSITION AND LOCKED, RAILS UP X2, CALL LIGHT WITHIN REACH. WILL CONTINUE TO MONITOR PATIENT.
[2021-07-14] MEDS: FUROSEMIDE 40 MG/4 ML VIAL IV SCH (08:44)
[2021-07-14] MEDS: BYSTOLIC 5 MG PO SCH (08:45)
[2021-07-14] MEDS: DEXAMETHASONE SOD PHOSPHATE 10 MG/ML VIAL IV SCH (08:52)
[2021-07-14] MEDS: ACYCLOVIR 800 MG TABLET PO SCH ×2 (09:00→17:00)
[2021-07-14] MEDS: FLUCONAZOLE (100 MG) 100 MG TABLET PO SCH (09:00)
[2021-07-14 11:12] LABS: CALCIUM, SERUM 8.9 mg/dL (8.5-10.1); CREATININE 1.3 mg/dL (0.6-1.3); POTASSIUM 3.9 mmol/L (3.5-5.1)
[2021-07-14] MEDS: ALBUMIN 25% 25 GM in PREMIX 1 EA IV SCH ×2 (11:46→20:48)
[2021-07-14 12:00] VITALS: BP 98/67
[2021-07-14 14:10] LABS: BAND % (MANUAL) 7 % (0.0-5.0); LYMPHOCYTES % (MANUAL) 34 % (16-48); METAMYELOCYTES % 15 % (0-0); MONOCYTES % (MANUAL) 10 % (0-11.0); MYELOCYTES % 10 % (0-0); NEUTROPHILS % (MANUAL) 21 (42-76); REACTIVE LYMPHOCYTES 3 % (0-0)
[2021-07-14] MEDS: REMDESIVIR (CHARGED) 100 MG in IV NS 0.9% 100 ML IV SCH (15:11)
[2021-07-14 16:00] VITALS: BP 103/75
--- NOTE | 2021-07-14 19:37 | NUR ---
LEADER TIER CLOSING NOTE PATIENT REMAINS IN BED. AWAKE, CONFUSED. NO S/SX OF PAIN NOTED DURING SHIFT. PATIENT ON O2 4L VIA NC WITH NO S/SX OF RESPIRATORY DISTRESS NOTED. TELE MONITOR WITH CURRENT READING A - PACING 70S. IV ACCESS TO LEFT UPPER ARM MIDLINE INTACT, PATENT AND SALINE LOCKED. ON BILATERAL SOFT WRIST RESTRAINTS WITH POSITIVE CIRCULATION NOTED. NO S/SX OF SKIN ISSUES AT THIS TIME. CONDOM CATH IN PLACE DRAINING YELLOW URINE. SAFETY PRECAUTIONS IN PLACE; BED IN LOW POSITION AND LOCKED, RAILS UP X2, CALL LIGHT WITHIN REACH. WILL ENDORSE TO CHASSIS ENGINEER NURSE FOR RANDOLPH.
[2021-07-14] MEDS: IV 1/2NS 1000 ML 1,000 ML IV SCH (19:59)
[2021-07-14 20:00] VITALS: BP 102/69
[2021-07-14] MEDS: ENOXAPARIN SODIUM 40 MG/0.4 ML DISP.SYRIN SQ SCH (20:54)
[2021-07-15] VITALS: BP 99/66
[2021-07-15] MEDS: CEFEPIME 2 GM in IV D5W 100 ML IV SCH ×3 (01:58→17:37)
[2021-07-15 04:00] VITALS: BP 114/78
[2021-07-15] MEDS: IV 1/2NS 1000 ML 1,000 ML IV SCH ×2 (06:51→15:23)
[2021-07-15] MEDS: METOPROLOL TARTRATE 50 MG TABLET PO SCH ×4 (06:52→14:20)
--- NOTE | 2021-07-15 07:30 | NUR ---
MANAGER ADVANCED CLOSING NOTE PATIENT RECEIVED IN BED. AWAKE, CONFUSED. NO S/SX OF PAIN NOTED DURING SHIFT. PATIENT ON O2 4L VIA NC WITH NO S/SX OF RESPIRATORY DISTRESS NOTED. TELE MONITOR WITH CURRENT READING A - PACING 70S. IV ACCESS TO LEFT UPPER ARM MIDLINE INTACT, PATENT AND SALINE LOCKED. ON BILATERAL SOFT WRIST RESTRAINTS WITH POSITIVE CIRCULATION NOTED. NO S/SX OF SKIN ISSUES AT THIS TIME. CONDOM CATH IN PLACE DRAINING YELLOW URINE. SAFETY PRECAUTIONS IN PLACE; BED IN LOW POSITION AND LOCKED, RAILS UP X2, CALL LIGHT WITHIN REACH. WILL FOR RANDOLPH.
--- NOTE | 2021-07-15 07:30 | NUR ---
REGULATORY AND COMPLIANCE TECHNICIAN NOTE PATIENT IN BED, RESTLESS AND YELLING. PATIENT IS CURRENTLY ON 4LPM, TOLERATING WELL 100%. PATIENT HAS BILATERAL SOFT WRIST RESTRAINTS ON D/T PULLING ON TUBES AND EQUIPMENT. SAMANTHA MIDLINE PATENT AND INTACT. IVF RUNNING WELL. SAFETY MEASURES IN PLACE. ISOLATION PRECAUTION IMPLEMENTED. ALL NEEDS MET AND ATTENDED. ALL ORDERS CARRIED OUT. ENDORSED TO DAY SHIFT NURSE FOR RANDOLPH. Addendum: 07/15/21 at 0744 by LUCY CARTER RN CONDOM CATHETER CHANGED. LOVENOX HELD LAST NIGHT D/T LOW H/H.
[2021-07-15 08:00] VITALS: BP 107/52
[2021-07-15] MEDS: ENSURE ENLIVE 237 ML LIQUID (VANILLA) PO SCH ×2 (08:00→17:37)
[2021-07-15] MEDS: BYSTOLIC 5 MG PO SCH (09:16)
[2021-07-15] MEDS: DEXAMETHASONE SOD PHOSPHATE 10 MG/ML VIAL IV SCH (09:16)
[2021-07-15] MEDS: FUROSEMIDE 40 MG/4 ML VIAL IV SCH (09:17)
[2021-07-15] MEDS: FLUCONAZOLE (100 MG) 100 MG TABLET PO SCH (09:17)
[2021-07-15] MEDS: ACYCLOVIR 800 MG TABLET PO SCH ×2 (09:17→17:37)
[2021-07-15 11:15] LABS: ALBUMIN 2.9 g/dL (3.4-5.0); BILIRUBIN,TOTAL 0.9 mg/dL (0.2-1.0); CREATININE 1.2 mg/dL (0.6-1.3); POTASSIUM 3.9 mmol/L (3.5-5.1); TOTAL PROTEIN, SERUM 7.3 g/dL (6.4-8.2)
[2021-07-15 12:00] VITALS: BP 104/66
[2021-07-15 13:20] LABS: HEMATOCRIT 28 % (39-51); HEMOGLOBIN 9.4 g/dL (13.5-17.5); MEAN CORPUSCULAR HGB CONC 34 g/dl (31.0-36.0); MEAN CORPUSCULAR VOLUME 109 fL (80-96); PLATELET COUNT (AUTO) 91 K/uL (150-450); RED BLOOD CELL COUNT(AUTO) 2.56 MIL/uL (4.5-6.0); WHITE BLOOD COUNT (AUTO) 5.1 K/uL (4.3-11.0)
[2021-07-15 14:06] LABS: *CRYPTOCOCCUS AG, CSF Negative (Negative)
[2021-07-15] MEDS: REMDESIVIR (CHARGED) 100 MG in IV NS 0.9% 100 ML IV SCH (15:23)
[2021-07-15 15:32] LABS: LYMPHOCYTES % (MANUAL) 10 % (16-48); NEUTROPHILS % (MANUAL) 45 (42-76)
[2021-07-15 15:33] LABS: EOSINOPHILS % (MANUAL) 5 % (0-4); MONOCYTES % (MANUAL) 40 % (0-11.0)
[2021-07-15 16:00] VITALS: BP 105/71
--- NOTE | 2021-07-15 16:21 | NUR ---
RN NOTE REPORT SINUS TACHY [address] SANTOS, WILL CONTINUE TO MONITOR PT
--- NOTE | 2021-07-15 16:30 | NUR ---
RN NOTE NO ORDER PER DR SANTOS FOR PT AT THIS TIME REGARDING ST, 160.
--- NOTE | 2021-07-15 18:15 | NUR ---
RN CLOSING NOTE PATIENT REMAIN IN BED. AWAKE, CONFUSED. NO S/SX OF PAIN NOTED DURING SHIFT. PATIENT ON O2 4L VIA NC WITH NO S/SX OF RESPIRATORY DISTRESS NOTED. TELE MONITOR WITH CURRENT READING A - PACING 70S. IV ACCESS TO LEFT UPPER ARM MIDLINE INTACT, PATENT AND SALINE LOCKED. ON BILATERAL SOFT WRIST RESTRAINTS WITH POSITIVE CIRCULATION NOTED. NO S/SX OF SKIN ISSUES AT THIS TIME. CONDOM CATH IN PLACE DRAINING YELLOW URINE, AND 1000 ML UOP. SAFETY PRECAUTIONS IN PLACE; BED IN LOW POSITION AND LOCKED, RAILS UP X2, CALL LIGHT WITHIN REACH. WILL ENDORSED TO NOC SHIFT FOR RANDOLPH.
--- NOTE | 2021-07-15 19:30 | NUR ---
RN opening notes Pt is resting in bed comfortably. Pt is alert and orientedX1 with episode of confusion. Respiration on 4 L NC. No SOB. No S/S of distress noted. tele monitor showed a-pacing. SAMANTHA midline is clean, intact and infuisng well 1/2 NS@ 100ml/hr. bilateral soft wrist restraint is intact and skin warm to touch, circulation is checks Q 2hr. Condom cath is intact and draining yellow urine. Safety precautions is maintained and call light is within reach. Will continue to monitor.
[2021-07-15 20:00] VITALS: BP 130/74
[2021-07-15] MEDS: PANTOPRAZOLE 40 MG VIAL IV SCH (21:44)
[2021-07-15] MEDS: ENOXAPARIN SODIUM 40 MG/0.4 ML DISP.SYRIN SQ SCH (21:56)
[2021-07-15] MEDS ORDERED: SODIUM BICARBONATE IV SCH (23:26)
[2021-07-15] MEDS ORDERED: [UNRECOGNIZED DRUG - OTHER] IV SCH (23:26)
[2021-07-16] VITALS: BP 113/77
[2021-07-16] MEDS ORDERED: SODIUM BICARBONATE SYR 50 MEQ/50 ML DISP.SYRIN ONE (00:32)
[2021-07-16] MEDS: METOPROLOL TARTRATE 50 MG TABLET PO SCH ×4 (01:44→17:28)
[2021-07-16] MEDS: CEFEPIME 2 GM in IV D5W 100 ML IV SCH ×3 (02:07→17:28)
[2021-07-16 04:00] VITALS: BP 141/93
--- NOTE | 2021-07-16 06:30 | NUR ---
RN closing notes Pt is resting in bed comfortably. Pt is alert and orientedX1 with episode of confusion. Respiration on 4 L NC. No SOB. No S/S of distress noted. tele monitor showed a-pacing H at 93. SAMANTHA midline is clean, intact and infuisng well sodium bicarb in 1/2 NS @ 100ml/hr. Condom cath is intact and draining yellow urine. Routine meds were given as ordered. Kept Pt clean, dry and comfortable. All needs met and attended. Safety precautions is maintained and call light is within reach. Will endorse to am nurse for RANDOLPH. Addendum: 07/16/21 at 0815 by LILLY RUFFIN RN bilateral soft wrist restraint is intact and skin warm to touch, circulation is checks Q 2hr. Addendum: 07/16/21 at 0824 by LILLY RUFFIN RN tele monitor showed a-pacing HR at 93.
--- NOTE | 2021-07-16 07:27 | NUR ---
RN NOTE- PATIENT IN BED. AWAKE, CONFUSED. NO S/SX OF PAIN NOTED. PATIENT ON O2 4L VIA NC WITH NO S/SX OF RESPIRATORY DISTRESS NOTED. TELE MONITOR . IV ACCESS TO LEFT UPPER ARM MIDLINE INTACT. ON BILATERAL SOFT WRIST RESTRAINTS WITH POSITIVE CIRCULATION NOTED. NO S/SX OF SKIN ISSUES AT THIS TIME. CONDOM CATH IN PLACE DRAINING YELLOW URINE. SAFETY PRECAUTIONS IN PLACE; BED IN LOW POSITION AND LOCKED, RAILS UP X2, CALL LIGHT WITHIN REACH.
[2021-07-16 08:00] VITALS: BP 134/75
[2021-07-16] MEDS: ENSURE ENLIVE 237 ML LIQUID (VANILLA) PO SCH ×2 (08:47→17:27)
[2021-07-16] MEDS: BYSTOLIC 5 MG PO SCH (09:00)
[2021-07-16] MEDS: DEXAMETHASONE SOD PHOSPHATE 10 MG/ML VIAL IV SCH (09:02)
[2021-07-16] MEDS: FLUCONAZOLE (100 MG) 100 MG TABLET PO SCH (09:02)
[2021-07-16] MEDS: FUROSEMIDE 40 MG/4 ML VIAL IV SCH (09:02)
[2021-07-16] MEDS: ACYCLOVIR 800 MG TABLET PO SCH ×2 (09:02→17:28)
[2021-07-16] MEDS: PANTOPRAZOLE 40 MG VIAL IV SCH (09:02)
[2021-07-16] MEDS: [UNRECOGNIZED DRUG - OTHER] IV SCH ×2 (10:43→21:23)
[2021-07-16] MEDS: SODIUM BICARBONATE IV SCH ×2 (10:43→21:23)
[2021-07-16 11:19] LABS: HEMATOCRIT 26 % (39-51); MEAN CORPUSCULAR HGB CONC 34 g/dl (31.0-36.0); MEAN CORPUSCULAR VOLUME 108 fL (80-96); PLATELET COUNT (AUTO) 89 K/uL (150-450); RED BLOOD CELL COUNT(AUTO) 2.45 MIL/uL (4.5-6.0); WHITE BLOOD COUNT (AUTO) 6.3 K/uL (4.3-11.0)
[2021-07-16 11:31] LABS: ALBUMIN 2.9 g/dL (3.4-5.0); BILIRUBIN,DIRECT 0.4 mg/dL (0.0-0.2); BILIRUBIN,TOTAL 1.3 mg/dL (0.2-1.0); PHOSPHORUS 4.4 mg/dL (2.5-4.9)
[2021-07-16 11:40] LABS: MAGNESIUM 2.5 mg/dL (1.8-2.4)
[2021-07-16 11:49] LABS: CALCIUM, SERUM 9.4 mg/dL (8.5-10.1); CREATININE 1.3 mg/dL (0.6-1.3); POTASSIUM 3.7 mmol/L (3.5-5.1)
[2021-07-16 11:55] LABS: BILIRUBIN,TOTAL 1.3 mg/dL (0.2-1.0); TOTAL PROTEIN, SERUM 7.9 g/dL (6.4-8.2)
[2021-07-16] MEDS: REMDESIVIR (CHARGED) 100 MG in IV NS 0.9% 100 ML IV SCH (15:04)
[2021-07-16 16:43] LABS: BAND % (MANUAL) 4 % (0.0-5.0); LYMPHOCYTES % (MANUAL) 26 % (16-48); METAMYELOCYTES % 12 % (0-0); MONOCYTES % (MANUAL) 3 % (0-11.0); MYELOCYTES % 9 % (0-0); NEUTROPHILS % (MANUAL) 43 (42-76); REACTIVE LYMPHOCYTES 3 % (0-0)
--- NOTE | 2021-07-16 18:35 | NUR ---
RN CLOSING NOTE- PT IN BED, CONFUSED AND VIRTUALLY UNRESPONSIVE, LEFT SIDED WEAKNESS NOTED, TELE SR AT 84/M . PT ON 4LPM O2 SATURATION AT 96%. IVF INFUSING SODIUM BICARB W 1/2 NS AT 100 HR VIA MIDLINE SAMANTHA. SIDE RAILS UP, BED LOCKED , MONITOR ASSIST.
--- NOTE | 2021-07-16 19:30 | NUR ---
SAND MIXER OPERATOR OPENING RECEIVED PATIENT IN BED. NON-VERBAL BUT EYE OPENING TO STIMULI. BILA. OSFT RESTRAINTS IN PLACE. PATIENT IS A MOUTH BREATHER, I CAN HEAR A LITTLE GRUNTING WHEN HE BREATHES IN 4LPM O2 VIA NC, BUT OVERALL WITH NO DISTRESS. NOT EXHIBITING PAIN VIA FLACC. IV SODIUM BICARB IN NS RUNNING AT 100CC/HR. CONDOM CATHETER IN PLACE, DRAINING CLEAR, HASEEB URINE. SAFETY IN PLACE. ISOLATION PROTOCOL IN PLACE. WILL CONTINUE WITH PATIENT CARE PLAN.
[2021-07-16 20:00] VITALS: BP 147/75
[2021-07-16] MEDS: ENOXAPARIN SODIUM 40 MG/0.4 ML DISP.SYRIN SQ SCH (21:54)
[2021-07-17] VITALS: BP 115/73
[2021-07-17] MEDS: CEFEPIME 2 GM in IV D5W 100 ML IV SCH ×3 (00:22→09:41)
[2021-07-17] MEDS: METOPROLOL TARTRATE 50 MG TABLET PO SCH ×5 (00:23→18:35)
--- NOTE | 2021-07-17 03:00 | NUR ---
OUTSIDE RIGGER NOTE PARMINDER, FINISHED CARPET INSPECTOR CALLED TO INFORM ME THAT PATIENT HR IS GOING TO 160'S. CHECKED PATIENT AND PATIENT SEEMS RESTLESS. CHECKED V/S: SATURATION WAS IN THE 80'S... TRIED TITRATING O2 NC TO 6LPM AND IT WAS STILL LOW. GOT A SIMPLE MASK AND TRID TO 8 PATIENT WAS STILL DESATURATING. GOT A NON-REBREATHER TO 15LPM AND IT GOT UP TO 100%. ALSO CHECKED THE SUGAR: 143. PATIENT STABLE FOR NOW IN NON-REBREATHER. WILL WEAN OF SLOWLY.
--- NOTE | 2021-07-17 06:02 | NUR ---
HOGSHEAD BUILDER NOTE PATIENT WEANED OFF NON-REBREATHER. TRIED SIMPLE MASK FIRST TO 8LPM AND PATIENT WAS STILL GOING GOOD WITH HIS SATURATION TO HIGH 90'. TRIED WITH NC 6LPM AND IT WAS STILL GOOD. HOWEVER WHEN I TRIED PUTTING PATIENT AGAIN IN 4LPM OF O2 HIS SATURATION WAS GOING IN THE 80'S 86-88% HENCE I ENDED UP PUTTING HIM IN 6LM OF O2 VIA NC. WILL CONTINUE TO MONITOR AND ASSESS PATIENT.
[2021-07-17 06:48] LABS: ALBUMIN 2.5 g/dL (3.4-5.0); BILIRUBIN,TOTAL 1.2 mg/dL (0.2-1.0); CALCIUM, SERUM 8.6 mg/dL (8.5-10.1); CREATININE 1.2 mg/dL (0.6-1.3); MAGNESIUM 2.5 mg/dL (1.8-2.4); PHOSPHORUS 3.6 mg/dL (2.5-4.9); POTASSIUM 3.8 mmol/L (3.5-5.1); TOTAL PROTEIN, SERUM 7.2 g/dL (6.4-8.2)
[2021-07-17 06:58] LABS: HEMATOCRIT 26 % (39-51); MEAN CORPUSCULAR HGB CONC 35 g/dl (31.0-36.0); MEAN CORPUSCULAR VOLUME 107 fL (80-96); PLATELET COUNT (AUTO) 76 K/uL (150-450); RED BLOOD CELL COUNT(AUTO) 2.42 MIL/uL (4.5-6.0); WHITE BLOOD COUNT (AUTO) 6.5 K/uL (4.3-11.0)
--- NOTE | 2021-07-17 06:58 | NUR ---
TOBACCO FLAVORER NOTE DID SWALLOW NURSING ASSESSMENT. PATIENT UNABLE TO COMPREHEND. HENCE NOT FULLY ABLE TO SWALLOW, CRUSH MEDS IN APPLE SAUCE OR PUDDING. PUT THE HOB IN HIGH FOWLERS. NEEDS SWALLOW EVALUATION. WILL ENDORSE TO MORNING SHIFT RN. EVEN UNABLE TO DO ORAL CARE BECAUSE PATIENT TRYING TO BITE EVERYTHING PUT IN HIS MOUTH, CLENCHING HIS TEETH.
--- NOTE | 2021-07-17 07:48 | NUR ---
MS RN CLOSING REPORT GIVEN TO [facility] FOR CONTINUITY OF CARE.
--- NOTE | 2021-07-17 07:50 | NUR ---
ms rn received on bed, patient is somewhat lethargic,responsive to pain, very confuse at this time, will monitor patient.
[2021-07-17 08:00] VITALS: BP 105/73
[2021-07-17] MEDS: ENSURE ENLIVE 237 ML LIQUID (VANILLA) PO SCH ×2 (08:00→17:00)
--- NOTE | 2021-07-17 08:20 | NUR ---
ms rn patient spits oral meds, aware,all needs attended.
[2021-07-17] MEDS: BYSTOLIC 5 MG PO SCH (09:00)
[2021-07-17] MEDS: ACYCLOVIR 800 MG TABLET PO SCH (09:39)
[2021-07-17] MEDS: DEXAMETHASONE SOD PHOSPHATE 10 MG/ML VIAL IV SCH (09:39)
[2021-07-17] MEDS: FLUCONAZOLE (100 MG) 100 MG TABLET PO SCH (09:40)
[2021-07-17] MEDS: PANTOPRAZOLE 40 MG TABLET.DR PO SCH (09:41)
[2021-07-17] MEDS ORDERED: BUMETANIDE INJ 8 MG in IV NS 0.9% 48 ML IV ONE (10:00)
--- NOTE | 2021-07-17 10:00 | NUR ---
ms rn due meds given, patient is spitting oral foods, md aware, still following up for ct head ,nobody answering in ct.
--- NOTE | 2021-07-17 12:00 | NUR ---
ms rn was seen by madelyn denson.still no ct head done,left message again to ct.
[2021-07-17] MEDS ORDERED: METOPROLOL TARTRATE 25 MG TABLET PO SCH (17:00)
[2021-07-17] MEDS ORDERED: D5W IV SCH (17:00)
[2021-07-17] MEDS ORDERED: ACYCLOVIR IV SCH (17:00)
--- NOTE | 2021-07-17 17:00 | NUR ---
ms rn call fountain supervisor for ct head note done, waiting for her to call back.
[2021-07-17 17:45] LABS: BAND % (MANUAL) 5 % (0.0-5.0); LYMPHOCYTES % (MANUAL) 25 % (16-48); METAMYELOCYTES % 10 % (0-0); MONOCYTES % (MANUAL) 8 % (0-11.0); MYELOCYTES % 6 % (0-0); NEUTROPHILS % (MANUAL) 46 (42-76)
[2021-07-17] MEDS: ACYCLOVIR 200 MG CAPSULE PO SCH (18:34)
--- NOTE | 2021-07-17 19:00 | NUR ---
MS RN OPENING NOTE PT IS NONVERBAL AND CONFUSED. SAFETY PRECAUTIONS IN PLACE. WILL CONTINUE TO MONITOR.
--- NOTE | 2021-07-17 19:01 | NUR ---
ms rn on bed, no distress noted,all needs attended.
[2021-07-17 20:00] VITALS: BP 151/74
[2021-07-17] MEDS: ENOXAPARIN SODIUM 40 MG/0.4 ML DISP.SYRIN SQ SCH (21:00)
--- NOTE | 2021-07-17 21:10 | NUR ---
LOVENOX NOT ADMINISTERED BECAUSE PLT IS 76. WILL CVONTINUE WITH PLAN OF CARE Addendum: 07/17/21 at 2127 by MELIA DOWD RN LOVENOX NOT ADMINISTERED BECAUSE PLT IS 76. DR MIXON MADE AWARE. SHE ORDERED TO HOLD. WILL CONTINUE WITH PLAN OF CARE
[2021-07-18] VITALS: BP_SYST 107; BP_SYST 134; BP_DIAS 66; BP_DIAS 80
[2021-07-18] MEDS: METOPROLOL TARTRATE 50 MG TABLET PO SCH ×4 (00:17→17:06)
[2021-07-18] MEDS ORDERED: LORAZEPAM INJ 2 MG/ML VIAL IV PRN (01:00)
[2021-07-18 04:00] VITALS: BP 126/86
--- NOTE | 2021-07-18 06:30 | NUR ---
PARTS SALESPERSON CLOSING NOTE PT RESTING COMFORTABLY IN BED. NEEDS MET AND MEDICATIONS ADMINISTERED. PT ON EXTERNAL FUR MIXER SR @ 86. WILL ENDORSE TO ONCOMING RN FOR R[place]OL[place].
--- NOTE | 2021-07-18 07:17 | NUR ---
CASING TRIMMER OPENING RECEIVED PATIENT IN BED. NON-VERBAL BUT EYE OPENING TO STIMULI. BILA. SOFT RESTRAINTS IN PLACE. PATIENT IS BREATHING EVENLY AND NONLABORED ON8 LPM VIA FACE MASK, NOT EXHIBITING PAIN VIA FLACC. IV ACCESS NOTED ON [facility]A MIDLINE. CONDOM CATHETER IN PLACE, DRAINING CLEAR, HASEEB URINE. SAFETY IN PLACE. ISOLATION PROTOCOL IN PLACE. WILL CONTINUE TO MONITOR
[2021-07-18 08:00] VITALS: BP 125/72
[2021-07-18] MEDS: DEXAMETHASONE SOD PHOSPHATE 10 MG/ML VIAL IV SCH (08:11)
[2021-07-18] MEDS: PANTOPRAZOLE 40 MG TABLET.DR PO SCH (08:12)
[2021-07-18] MEDS: LEVOFLOXACIN (250MG) 250 MG TABLET PO SCH (08:12)
[2021-07-18] MEDS: ACYCLOVIR 200 MG CAPSULE PO SCH ×2 (08:12→17:05)
[2021-07-18] MEDS: FLUCONAZOLE (100 MG) 100 MG TABLET PO SCH (08:12)
[2021-07-18] MEDS: ENSURE ENLIVE 237 ML LIQUID (VANILLA) PO SCH ×2 (08:12→16:25)
[2021-07-18] MEDS: ASPIRIN 81 MG TAB.CHEW PO SCH (08:44)
[2021-07-18 10:48] LABS: ALANINE AMINOTRANSFERASE 34 U/L (12-78); ALBUMIN 2.9 g/dL (3.4-5.0); ALKALINE PHOSPHATASE 99 U/L (46-116); ASPARTATE AMINOTRANSFERASE 22 U/L (15-37); BILIRUBIN,TOTAL 1.4 mg/dL (0.2-1.0); CALCIUM, SERUM 9.8 mg/dL (8.5-10.1); CARBON DIOXIDE 28 mmol/L (21-32); CHLORIDE 107 mmol/L (98-107); CREATININE 1.7 mg/dL (0.6-1.3); GLUCOSE 185 mg/dL (74-106); MAGNESIUM 3.3 mg/dL (1.8-2.4); POTASSIUM 3.6 mmol/L (3.5-5.1); SODIUM SERUM 148 mmol/L (136-145); TOTAL PROTEIN, SERUM 8.8 g/dL (6.4-8.2)
[2021-07-18 10:51] LABS: HEMOGLOBIN 10.8 g/dL (13.5-17.5); WHITE BLOOD COUNT (AUTO) 6.2 K/uL (4.3-11.0)
[2021-07-18] MEDS ORDERED: HALOPERIDOL LACTATE INJ 5 MG/ML VIAL IV ONE (11:00)
[2021-07-18 11:04] LABS: HEMATOCRIT 31 % (39-51); MEAN CORPUSCULAR HGB CONC 35 g/dl (31.0-36.0); MEAN CORPUSCULAR VOLUME 106 fL (80-96); PLATELET COUNT (AUTO) 86 K/uL (150-450); RED BLOOD CELL COUNT(AUTO) 2.94 MIL/uL (4.5-6.0)
[2021-07-18 11:36] LABS: UREA NITROGEN, BLOOD 89 mg/dL (7-18)
--- NOTE | 2021-07-18 11:40 | NUR ---
RN NOTE RECEIVED CALL FROM LAB CRITICAL LAB VALUE OF BUN 89, NOTIFIED.
[2021-07-18] MEDS ORDERED: FLUCONAZOLE IN NS 400 MG in PREMIX 1 EA IV SCH (13:00)
[2021-07-18 13:55] LABS: BAND % (MANUAL) 13 % (0.0-5.0); LYMPHOCYTES % (MANUAL) 18 % (16-48); NEUTROPHILS % (MANUAL) 20 (42-76)
[2021-07-18 13:56] LABS: MONOCYTES % (MANUAL) 49 % (0-11.0)
--- NOTE | 2021-07-18 15:20 | NUR ---
RN NOTE MD GAVE NEW ORDER FOR NGT PLACEMENT, FAMILY AGREEABLE PER MD. 14FR PLACED IN THE LT NARE, STAT CHEST XRAY ORDERED.
[2021-07-18] MEDS ORDERED: HALOPERIDOL 1 MG TABLET PO PRN (15:30)
--- NOTE | 2021-07-18 18:27 | NUR ---
INSTALLATION SUPERINTENDENT CLOSING PATIENT IN BED. NON-VERBAL BUT EYE OPENING TO STIMULI. BILA. SOFT RESTRAINTS IN PLACE. Q 15 SAFETY CHECKS WERE PERFORMED DURING SHIFT. PATIENT IS BREATHING EVENLY AND NONLABORED ON 4 LPM VIA N/C, NOT EXHIBITING PAIN VIA FLACC. IV ACCESS NOTED ON SAMANTHA MIDLINE. PATIENT TURNED AND REPOSITIONED PER POLICY. ALL MEDICATIONS GIVEN ORDERED. NGT IN PLACE AWAITING DIETARY CLARIFICATION FOR FEEDING. 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 SAFETY MEASURES IN PLACE. ISOLATION PROTOCOL IN PLACE. BED LOW LOCKED AND CALL LIGHT WITHIN REACH. WILL ENDORSE TO ONCOMING SHIFT
[2021-07-18 20:00] VITALS: BP 145/92
[2021-07-18] MEDS: ENOXAPARIN SODIUM 40 MG/0.4 ML DISP.SYRIN SQ SCH (21:50)
[2021-07-19] MEDS ORDERED: IV 1/2NS 1000 ML 1,000 ML IV ONE
[2021-07-19] MEDS: METOPROLOL TARTRATE 50 MG TABLET PO SCH ×3 (00:39→12:00)
[2021-07-19 04:00] VITALS: BP 128/92
--- NOTE | 2021-07-19 06:30 | NUR ---
SUPERVISOR PHOTOSTAT CLOSING NOTE PT RESTING COMFORTABLY IN BED. NEEDS MET AND MEDICATIONS ADMINISTERED. PT ON EXTERNAL FOOD PRODUCTION SUPERVISOR SR @ 83 WITH BBB A PACING. WILL ENDORSE TO ONCOMING RN FOR RANDOLPH.
[2021-07-19] MEDS: PANTOPRAZOLE 40 MG TABLET.DR PO SCH (07:30)
--- NOTE | 2021-07-19 07:38 | NUR ---
MS RN OPENING NOTE PT IS NONVERBAL AND CONFUSED. NGT IN PLACE. SAFETY PRECAUTIONS IN PLACE. WILL CONTINUE TO MONITOR.
[2021-07-19 08:00] VITALS: BP 124/84
[2021-07-19] MEDS: ENSURE ENLIVE 237 ML LIQUID (VANILLA) PO SCH ×2 (08:00→17:00)
--- NOTE | 2021-07-19 08:00 | NUR ---
RN NOTE PT READING A FLUTTER ON HEART MONITOR. CONFUSED, RESPONSE TO VOICE. DR SANTOS NOTIFIED. ORDERS RECEIVED.
[2021-07-19] MEDS ORDERED: IV NS 0.9% 1,000 ML IV SCH (08:30)
[2021-07-19] MEDS ORDERED: AMIODARONE HCL 200 MG TABLET PO SCH (09:00)
[2021-07-19 09:27] LABS: CALCIUM, SERUM 10.1 mg/dL (8.5-10.1); CARBON DIOXIDE 24 mmol/L (21-32); CHLORIDE 112 mmol/L (98-107); CREATININE 1.8 mg/dL (0.6-1.3); GLUCOSE 174 mg/dL (74-106); POTASSIUM 3.8 mmol/L (3.5-5.1); SODIUM SERUM 152 mmol/L (136-145)
[2021-07-19 09:29] LABS: UREA NITROGEN, BLOOD 110 mg/dL (7-18)
[2021-07-19 09:33] LABS: ALANINE AMINOTRANSFERASE 32 U/L (12-78); ALBUMIN 2.7 g/dL (3.4-5.0); ALKALINE PHOSPHATASE 89 U/L (46-116); ASPARTATE AMINOTRANSFERASE 24 U/L (15-37); BILIRUBIN,TOTAL 1.3 mg/dL (0.2-1.0); MAGNESIUM 3.6 mg/dL (1.8-2.4); TOTAL PROTEIN, SERUM 8.3 g/dL (6.4-8.2)
[2021-07-19 09:35] LABS: EOSINOPHILS % (AUTO) 0.2 % (0.0-6.0); HEMATOCRIT 31 % (39-51); HEMOGLOBIN 10.4 g/dL (13.5-17.5); LYMPHOCYTES # (AUTO) 0.6 K/uL (0.8-4.8); LYMPHOCYTES % (AUTO) 10.5 % (20.0-44.0); MEAN CORPUSCULAR HGB CONC 34 g/dl (31.0-36.0); MEAN CORPUSCULAR VOLUME 107 fL (80-96); MONOCYTES # (AUTO) 3.3 K/uL (0.1-1.30); MONOCYTES % (AUTO) 52.9 % (2.0-12.0); NEUTROPHILS # (AUTO) 2.2 K/uL (1.8-8.9); NEUTROPHILS % (AUTO) 36.4 % (43.0-81.0); PLATELET COUNT (AUTO) 80 K/uL (150-450); RED BLOOD CELL COUNT(AUTO) 2.86 MIL/uL (4.5-6.0); WHITE BLOOD COUNT (AUTO) 6.2 K/uL (4.3-11.0)
[2021-07-19] MEDS: LEVOFLOXACIN (250MG) 250 MG TABLET PO SCH (09:57)
[2021-07-19] MEDS: ASPIRIN 81 MG TAB.CHEW PO SCH (09:58)
[2021-07-19] MEDS: DEXAMETHASONE SOD PHOSPHATE 10 MG/ML VIAL IV SCH (09:58)
[2021-07-19] MEDS: ACYCLOVIR 200 MG CAPSULE PO SCH (09:59)
[2021-07-19] MEDS: FLUCONAZOLE (100 MG) 100 MG TABLET PO SCH (09:59)
[2021-07-19] MEDS ORDERED: PHARMACY TO CHANGE PO MEDS TO GT/NG XX PRN (10:00)
--- NOTE | 2021-07-19 10:00 | NUR ---
RN NOTE PT F/C IN PLACE ORDERED BY DR VALE.
[2021-07-19 10:23] LABS: LYMPHOCYTES % (MANUAL) 9 % (16-48); MONOCYTES % (MANUAL) 54 % (0-11.0); NEUTROPHILS % (MANUAL) 37 (42-76)
[2021-07-19 12:00] VITALS: BP 131/81
[2021-07-19] MEDS ORDERED: ACETAMINOPHEN 650 MG/20.3 ML UDC NG PRN (12:00)
--- NOTE | 2021-07-19 12:03 | NUR ---
RN NOTE PT PULLED OUT F/C AND NGT. BLEEDING NOTED FROM URETHRA. DR NOTIFIED. NO RESPONSE. WILL HOLD F/C PLACEMENT D/T TRAUMA.
[2021-07-19] MEDS: AMIODARONE HCL 200 MG TABLET NG SCH ×2 (12:12→17:00)
[2021-07-19] MEDS: METOPROLOL TARTRATE 50 MG TABLET NG SCH ×2 (12:30→18:16)
[2021-07-19 16:00] VITALS: BP 118/66
[2021-07-19] MEDS: ACYCLOVIR 200 MG CAPSULE NG SCH (17:00)
--- NOTE | 2021-07-19 17:30 | NUR ---
RN NOTE NEGATIVE PLACEMENT OF NGT. ATTEMPTED 5 MORE TIMES WITH X RAY TEAM PRESENT TO OBTAIN POSITIVE PLACEMENT. UNSUCCESSFUL. NO STAFF AVAILABLE TO ATTEMPT REINSERTION. WILL ENDORSE TO NIGHT RN FOR PLACEMENT.
--- NOTE | 2021-07-19 18:59 | NUR ---
RN NOTE PT IN COMFORTABLE POSITION. NO DISTRESS NOTED. IV PRESENT AND FLUSHES WELL. N/S RUNNING AT 100 ML/HR. BED REST, BED ALARM ON. WILL ENDORSE TO NIGHT RN FOR RANDOLPH.
--- NOTE | 2021-07-19 19:30 | NUR ---
CHANNEL DEVELOPMENT DIRECTOR OPENING NOTE RECEIVED PT IN BED AWAKE. PT IS NONVERBAL AND CONFUSED. PT ON 5 LPM VIA NC. NO SOB OR S/S OF RESPIRATORY DISTRESS. IV ACCESS SAMANTHA MIDLINE, RUNNING NS 100 ML/HR, INTACT AND PATENT. SAFETY PRECAUTIONS IN PLACE. BED IN LOWEST LOCKED POSITION, HOB ELEVATED, SIDE RAILS UP X3, AND CALL LIGHT AND TABLE WITHIN REACH. WILL CONTINUE WITH PLAN OF CARE.
[2021-07-19 20:00] VITALS: BP 138/67
[2021-07-19] MEDS: ENOXAPARIN SODIUM 40 MG/0.4 ML DISP.SYRIN SQ SCH (21:35)
[2021-07-20] VITALS: BP 148/87
[2021-07-20] MEDS: METOPROLOL TARTRATE 50 MG TABLET NG SCH ×4 (00:19→17:01)
[2021-07-20 04:00] VITALS: BP 149/54
--- NOTE | 2021-07-20 06:02 | NUR ---
RN NOTE HELD METOPROLOL FOR ASPIRATION PRECAUTIONS AND NO NG-TUBE PLACEMENT AT THIS TIME D/T PATIENT PULLING IT OUT. BP 142/54 AND PULSE 75. WILL CONTINUE TO MONITOR AND ENDORSE TO ONCOMING NURSE.
--- NOTE | 2021-07-20 06:42 | NUR ---
RN CARDIAC CATH CLOSING NOTE PT IN BED AWAKE. PT IS NONVERBAL AND CONFUSED. PT ON 5 LPM VIA NC. NO SOB OR S/S OF RESPIRATORY DISTRESS. EXTERNAL VENEER PRESS OPERATOR READING A PACED 77, WITH SR, SVT, AND BBB. IV ACCESS SAMANTHA MIDLINE SL, INTACT AND PATENT. ALL NEEDS MET AT THIS TIME. SAFETY PRECAUTIONS IN PLACE AT THIS TIME. BED IN LOWEST LOCKED POSITION, HOB ELEVATED, SIDE RAILS UP X3, AND CALL LIGHT AND TABLE WITHIN REACH. WILL ENDORSE TO ONCOMING NURSE FOR RANDOLPH.
--- NOTE | 2021-07-20 07:02 | NUR ---
TOLL LINE INSPECTOR OPENING RECEIVED PATIENT IN BED. NON-VERBAL BUT EYE OPENING TO STIMULI. BILA. SOFT RESTRAINTS IN PLACE. PATIENT IS BREATHING EVENLY AND NONLABORED ON 5 LPM VIA NC, NOT EXHIBITING PAIN VIA FLACC. IV ACCESS NOTED ON SAMANTHA MIDLINE. CONDOM CATHETER IN PLACE, DRAINING CLEAR, HASEEB URINE. SAFETY IN PLACE. ISOLATION PROTOCOL IN PLACE. BED LOW LOCKED AND CALL LIGHT WITHIN REACH WILL CONTINUE TO MONITOR
[2021-07-20 07:26] LABS: CALCIUM, SERUM 9.8 mg/dL (8.5-10.1); CARBON DIOXIDE 24 mmol/L (21-32); CHLORIDE 120 mmol/L (98-107); CREATININE 2.2 mg/dL (0.6-1.3); GLUCOSE 166 mg/dL (74-106); MAGNESIUM 3.7 mg/dL (1.8-2.4); PHOSPHORUS 6.2 mg/dL (2.5-4.9); POTASSIUM 4.5 mmol/L (3.5-5.1)
[2021-07-20] MEDS: ENSURE ENLIVE 237 ML LIQUID (VANILLA) PO SCH (07:37)
[2021-07-20 07:44] LABS: HEMATOCRIT 32 % (39-51); HEMOGLOBIN 10.8 g/dL (13.5-17.5); MEAN CORPUSCULAR HGB CONC 34 g/dl (31.0-36.0); MEAN CORPUSCULAR VOLUME 109 fL (80-96); PLATELET COUNT (AUTO) 72 K/uL (150-450); RED BLOOD CELL COUNT(AUTO) 2.95 MIL/uL (4.5-6.0); WHITE BLOOD COUNT (AUTO) 5.5 K/uL (4.3-11.0)
[2021-07-20 07:53] LABS: SODIUM SERUM 158 mmol/L (136-145); UREA NITROGEN, BLOOD 113 mg/dL (7-18)
--- NOTE | 2021-07-20 07:55 | NUR ---
RN NOTE NOTIFIED OF CRITICAL VALUE BUN 113 AND SODIUM 158, NNO AT THIS TIME, ALSO GAVE NEW ORDER FOR HALDOL 2MG IV ONCE FOR RESTLESSNESS
[2021-07-20 08:00] VITALS: BP 105/63
[2021-07-20] MEDS ORDERED: HALOPERIDOL LACTATE INJ 5 MG/ML VIAL IV PRN (08:00)
[2021-07-20] MEDS: DEXAMETHASONE SOD PHOSPHATE 10 MG/ML VIAL IV SCH (08:36)
[2021-07-20] MEDS: AMIODARONE HCL 200 MG TABLET NG SCH ×3 (08:40→17:00)
[2021-07-20] MEDS: ACYCLOVIR 200 MG CAPSULE NG SCH ×2 (08:41→17:00)
[2021-07-20] MEDS: PANTOPRAZOLE 40 MG/PACK PACK NG SCH (08:41)
[2021-07-20] MEDS: FLUCONAZOLE (100 MG) 100 MG TABLET NG SCH (08:41)
[2021-07-20] MEDS: LEVOFLOXACIN (250MG) 250 MG TABLET NG SCH (09:42)
--- NOTE | 2021-07-20 11:26 | NUR ---
RN NOTE MD BEDSIDE GAVE NEW ORDER FOR D5 NS BOLUS AND 1/2 NS @ 100ML/HR POST BOLUS
[2021-07-20] MEDS ORDERED: IV D5/ 0.9% NACL 1,000 ML IV ONE (11:30)
--- NOTE | 2021-07-20 12:00 | NUR ---
RN NOTE NGT REPLACED, STAT CHEST XRAY TO CONFIRM, F/C REPLACED AFTER REMOVAL 16 FR 600 ML REMOVED.
[2021-07-20] MEDS: IV 1/2NS 1000 ML 1,000 ML IV PRN ×2 (12:18→20:29)
[2021-07-20] MEDS: HALOPERIDOL 1 MG TABLET NG PRN (13:43)
[2021-07-20 13:58] LABS: BAND % (MANUAL) 2 % (0.0-5.0); LYMPHOCYTES % (MANUAL) 11 % (16-48); MONOCYTES % (MANUAL) 20 % (0-11.0); NEUTROPHILS % (MANUAL) 42 (42-76); REACTIVE LYMPHOCYTES 25 % (0-0)
[2021-07-20] MEDS ORDERED: NEPRO GT PRN (14:00)
[2021-07-20 15:23] LABS: CALCIUM, SERUM 9.5 mg/dL (8.5-10.1); CARBON DIOXIDE 23 mmol/L (21-32); CHLORIDE 122 mmol/L (98-107); CREATININE 2.2 mg/dL (0.6-1.3); GLUCOSE 235 mg/dL (74-106); POTASSIUM 4.5 mmol/L (3.5-5.1)
[2021-07-20 15:31] LABS: SODIUM SERUM 160 mmol/L (136-145); UREA NITROGEN, BLOOD 113 mg/dL (7-18)
--- NOTE | 2021-07-20 15:32 | NUR ---
RN NOTE NOTIFIED OF CRITICAL SODIUM 160. NNO AT THIS TIME
--- NOTE | 2021-07-20 18:28 | NUR ---
GEOMETRICIAN CLOSING PATIENT IN BED. NON-VERBAL BUT EYE OPENING TO STIMULI. BILA. SOFT RESTRAINTS IN PLACE. Q 15 SAFETY CHECKS WERE PERFORMED DURING SHIFT. PATIENT IS BREATHING EVENLY AND NONLABORED ON 5 LPM VIA N/C, NOT EXHIBITING PAIN VIA FLACC. IV ACCESS NOTED ON SAMANTHA MIDLINE. PATIENT TURNED AND REPOSITIONED PER POLICY. ALL MEDICATIONS GIVEN ORDERED. NGT IN PLACE NEPHRO @ 30ML/HR, SAFETY MEASURES IN PLACE. ISOLATION PROTOCOL IN PLACE. BED LOW LOCKED AND CALL LIGHT WITHIN REACH. WILL ENDORSE TO ONCOMING SHIFT
--- NOTE | 2021-07-20 19:21 | NUR ---
RN OPENING NOTES RECEIVED PT IN BED, AWAKE. AOx1. ON 5L/MIN VIA NC AND TOLERATING WELL. NO SOB NOTED. NO S/SX OF RESPIRATORY DISTRESS NOTED. IV ACCES IN SAMANTHA MIDLINE RUNNING 1/2 NS @ 100 ML/HR. TELE MONITOR ON. SAFETY PRECAUTIONS IN PLACE: BED IN LOWEST, LOCKED POSITION, BRAKES ON, AND SIDERAILS UPx2. TABLE AND CALL LIGHT WITHIN REACH. WILL CONTINUE TO MONITOR.
[2021-07-20 20:00] VITALS: BP 159/86
[2021-07-20] MEDS: ENOXAPARIN SODIUM 40 MG/0.4 ML DISP.SYRIN SQ SCH ×2 (20:34→20:41)
--- NOTE | 2021-07-20 20:36 | NUR ---
PT HAD PLATELETS OF 72. HELD LOVENOX. NO S/SX OF BLEEDING AT THIS MOMENT. WILL CONTINUE TO MONITOR. Addendum: 07/20/21 at 2039 by CLEOPATRA LEON RN DISREGARD NOTE
--- NOTE | 2021-07-20 20:41 | NUR ---
CONTACTED MD ABOUT LOW PLATELETS. DOCTOR ADVISED TO STILL ADMINISTER LOVENOX. WILL CONTINUE TO MONITOR.
[2021-07-21] VITALS: BP 123/70
[2021-07-21] MEDS: HALOPERIDOL 1 MG TABLET NG PRN (02:19)
[2021-07-21 04:00] VITALS: BP 144/77
[2021-07-21] MEDS: METOPROLOL TARTRATE 50 MG TABLET NG SCH ×4 (05:33→17:14)
[2021-07-21 06:49] LABS: CALCIUM, SERUM 9.2 mg/dL (8.5-10.1); CARBON DIOXIDE 24 mmol/L (21-32); CHLORIDE 122 mmol/L (98-107); CREATININE 1.9 mg/dL (0.6-1.3); GLUCOSE 190 mg/dL (74-106); MAGNESIUM 3.1 mg/dL (1.8-2.4); PHOSPHORUS 5.1 mg/dL (2.5-4.9); POTASSIUM 4.5 mmol/L (3.5-5.1)
--- NOTE | 2021-07-21 06:58 | NUR ---
RN CLOSING NOTES PT IN BED, ASLEEP, OPENS EYES TO VERBAL STIMULI. AOx1. ON 5L/MIN VIA NC AND TOLERATING WELL. NO SOB NOTED. NO S/SX OF RESPIRATORY DISTRESS NOTED. IV ACCES IN SAMANTHA MIDLINE RUNNING 1/2 NS @ 100 ML/HR. TELE MONITOR [id number] A PACING WITH RATE IN 80S. ALL NEEDS MET. PT KEPT CLEAN AND DRY. NG TUBE IN PLACE RUNNING NEPRO @ 40 ML/HR. DA SILVA CATHETER IN PLACE DRAINING BLOOD TINGED, YELLOW URINE. ALL NEEDS MET. PT KEPT CLEAN AND DRY. SAFETY PRECAUTIONS IN PLACE: BED IN LOWEST, LOCKED POSITION, BRAKES ON, AND SIDERAILS UPx2. TABLE AND CALL LIGHT WITHIN REACH. WILL ENDORSE TO ONCOMING SHIFT FOR RANDOLPH.
--- NOTE | 2021-07-21 07:30 | NUR ---
PT RECEIVED RESTING COMFORTABLY IN BED. NO S/S OR C/O PAIN OR DISTRESS NOTED. SIDE RAILS UP X2, CALL LIGHT LEFT WITHIN REACH. WILL CONTINUE PLAN OF CARE.
[2021-07-21 07:38] LABS: SODIUM SERUM 158 mmol/L (136-145); UREA NITROGEN, BLOOD 96 mg/dL (7-18)
[2021-07-21 08:34] VITALS: BP 124/78
[2021-07-21 08:50] LABS: HEMATOCRIT 27 % (39-51); HEMOGLOBIN 9.4 g/dL (13.5-17.5); MEAN CORPUSCULAR HGB CONC 34 g/dl (31.0-36.0); MEAN CORPUSCULAR VOLUME 109 fL (80-96); PLATELET COUNT (AUTO) 62 K/uL (150-450); RED BLOOD CELL COUNT(AUTO) 2.51 MIL/uL (4.5-6.0); WHITE BLOOD COUNT (AUTO) 6.6 K/uL (4.3-11.0)
[2021-07-21] MEDS: DEXAMETHASONE SOD PHOSPHATE 10 MG/ML VIAL IV SCH (09:23)
[2021-07-21] MEDS: LEVOFLOXACIN (250MG) 250 MG TABLET NG SCH (09:24)
[2021-07-21] MEDS: AMIODARONE HCL 200 MG TABLET NG SCH ×3 (09:24→17:14)
[2021-07-21] MEDS: ACYCLOVIR 200 MG CAPSULE NG SCH ×2 (09:24→17:14)
[2021-07-21] MEDS: FLUCONAZOLE (100 MG) 100 MG TABLET NG SCH (09:24)
[2021-07-21] MEDS: PANTOPRAZOLE 40 MG/PACK PACK NG SCH (09:24)
[2021-07-21] MEDS: IV 1/2NS 1000 ML 1,000 ML IV PRN ×2 (09:31→21:39)
[2021-07-21 12:34] VITALS: BP 126/73
[2021-07-21 12:42] LABS: BAND % (MANUAL) 4 % (0.0-5.0); EOSINOPHILS % (MANUAL) 2 % (0-4); LYMPHOCYTES % (MANUAL) 18 % (16-48); MONOCYTES % (MANUAL) 54 % (0-11.0); NEUTROPHILS % (MANUAL) 22 (42-76)
[2021-07-21 15:58] VITALS: BP 139/75
--- NOTE | 2021-07-21 19:24 | NUR ---
CHANGE OF SHIFT REPORT PT RESTING COMFORTABLY IN BED. NO S/S OR C/O PAIN OR DISTRESS NOTED. SIDE RAILS UP X2, CALL LIGHT LEFT WITHIN REACH. NO SIGNIFICANT CHANGES SINCE PREVIOUS SHIFT. WILL GIVE REPORT TO TIERA FERRARA.
--- NOTE | 2021-07-21 19:30 | NUR ---
TELE/RN OPENING NOTE RECEIVED PATIENT RESTING IN BED. ALERT AND ORIENTED X 1 - EYES OPEN. NO S/SX OF PAIN AT THIS TIME. CONTINUES ON O2 5L VIA NC WITH NO S/SX OF RESPIRATORY DISTRESS NOTED. IV ACCESS TO LEFT UPPER ARM MIDLINE #18G INTACT AND PATENT. CONTINUES ON IVF 1/2 NS @ 100ML/HR. NG TUBE TO LEFT NARE INTACT WITH NEPRO RUNNING AT 45ML/HR WITH GOAL RATE OF 50ML/HR. TELE MONITOR IN PLACE READING A-PACING. CALL LIGHT WITHIN REACH. ASPIRATION, FALL AND SAFETY PRECAUTIONS MAINTAINED. WILL CONTINUE TO MONITOR.
[2021-07-21 20:00] VITALS: BP_SYST 111; BP_SYST 125; BP_DIAS 73; BP_DIAS 78
[2021-07-21] MEDS: ENOXAPARIN SODIUM 40 MG/0.4 ML DISP.SYRIN SQ SCH (21:39)
[2021-07-22] VITALS: BP 100/72
[2021-07-22] MEDS: NEPRO 1,000 ML BOTTLE NG SCH (03:03)
[2021-07-22 04:00] VITALS: BP 110/65
[2021-07-22] MEDS: METOPROLOL TARTRATE 50 MG TABLET NG SCH ×4 (06:00→17:53)
--- NOTE | 2021-07-22 06:20 | NUR ---
TELE/RN CLOSING NOTE PATIENT CURRENTLY RESTING IN BED. ALERT AND ORIENTED X 1 - EYES OPEN. NO S/SX OF PAIN AT THIS TIME. CONTINUES ON O2 5L VIA NC WITH NO S/SX OF RESPIRATORY DISTRESS NOTED. IV ACCESS TO LEFT UPPER ARM MIDLINE #18G INTACT AND PATENT. CONTINUES ON IVF 1/2 NS @ 100ML/HR. NG TUBE TO LEFT NARE INTACT WITH NEPRO RUNNING AT 50ML/HR. NO RESIDUAL NOTED AT THIS TIME. TELE MONITOR IN PLACE READING A-PACING. CALL LIGHT WITHIN REACH. ASPIRATION, FALL AND SAFETY PRECAUTIONS MAINTAINED. WILL ENDORSE PLAN OF CARE TO ONCOMING SHIFT.
[2021-07-22 07:20] LABS: CALCIUM, SERUM 8.8 mg/dL (8.5-10.1); CARBON DIOXIDE 21 mmol/L (21-32); CHLORIDE 123 mmol/L (98-107); CREATININE 1.6 mg/dL (0.6-1.3); GLUCOSE 171 mg/dL (74-106); MAGNESIUM 2.7 mg/dL (1.8-2.4); PHOSPHORUS 4.1 mg/dL (2.5-4.9); POTASSIUM 4.2 mmol/L (3.5-5.1); UREA NITROGEN, BLOOD 79 mg/dL (7-18)
--- NOTE | 2021-07-22 07:28 | NUR ---
RN OPENING NOTES PATIENT SLEEPING, AWAKENS TO VERBAL STIMULI A/O X1. NO S/S OF PAIN NOTED AT THIS TIME. ON 5L OXYGEN VIA NC, NO DISTRESS OR SHORTNESS OF BREATH NOTED. IV ACCESS SAMANTHA MIDLINE, INTACT, PATENT AND FLUSHING WELL. PATIENT HAVE A DA SILVA CATHETER, IN PLACE AND DRAINING WELL. FALL AND SAFETY MEASURES IN PLACE, BED ALARM ON, BED IN LOW AND LOCK POSITION, CALL LIGHT AND TABLE WITHIN EASY REACH, SIDE RAILS UP X2. WILL CONTINUE TO MONITOR.
[2021-07-22 08:00] VITALS: BP 111/66
[2021-07-22 08:13] LABS: HEMATOCRIT 28 % (39-51); HEMOGLOBIN 9.2 g/dL (13.5-17.5); MEAN CORPUSCULAR HGB CONC 33 g/dl (31.0-36.0); MEAN CORPUSCULAR VOLUME 109 fL (80-96); PLATELET COUNT (AUTO) 57 K/uL (150-450); RED BLOOD CELL COUNT(AUTO) 2.54 MIL/uL (4.5-6.0); WHITE BLOOD COUNT (AUTO) 5.5 K/uL (4.3-11.0)
[2021-07-22 08:43] LABS: SODIUM SERUM 156 mmol/L (136-145)
[2021-07-22] MEDS: DEXAMETHASONE SOD PHOSPHATE 10 MG/ML VIAL IV SCH (09:50)
[2021-07-22] MEDS: LEVOFLOXACIN (250MG) 250 MG TABLET NG SCH (09:50)
[2021-07-22] MEDS: PANTOPRAZOLE 40 MG/PACK PACK NG SCH (09:50)
[2021-07-22] MEDS: FLUCONAZOLE (100 MG) 100 MG TABLET NG SCH (09:51)
[2021-07-22] MEDS: ACYCLOVIR 200 MG CAPSULE NG SCH ×2 (09:51→17:50)
[2021-07-22] MEDS: AMIODARONE HCL 200 MG TABLET NG SCH ×3 (09:52→17:52)
[2021-07-22] MEDS: IV D5W 1,000 ML IV SCH ×2 (11:30→20:54)
[2021-07-22 12:00] VITALS: BP 103/64
[2021-07-22 12:08] LABS: BAND % (MANUAL) 7 % (0.0-5.0); EOSINOPHILS % (MANUAL) 1 % (0-4); LYMPHOCYTES % (MANUAL) 54 % (16-48); MONOCYTES % (MANUAL) 16 % (0-11.0); NEUTROPHILS % (MANUAL) 17 (42-76); REACTIVE LYMPHOCYTES 6 % (0-0)
[2021-07-22 16:00] VITALS: BP 118/73
--- NOTE | 2021-07-22 19:15 | NUR ---
RN CLOSING NOTES PATIENT AWAKE RESTING IN BED, A/O X1. NO S/S OF PAIN NOTED AT THIS TIME. ON 5L OXYGEN VIA NC, NO DISTRESS OR SHORTNESS OF BREATH NOTED. IV ACCESS SAMANTHA MIDLINE, INTACT, PATENT AND FLUSHING WELL. PATIENT HAVE A DA SILVA CATHETER, IN PLACE AND DRAINING WELL. FALL AND SAFETY MEASURES IN PLACE, BED ALARM ON, BED IN LOW AND LOCK POSITION, CALL LIGHT AND TABLE WITHIN EASY REACH, SIDE RAILS UP X2. WILL ENDORSE TO LINE SERVICER.
--- NOTE | 2021-07-22 19:20 | NUR ---
TELE/RN OPENING NOTE RECEIVED PATIENT RESTING IN BED. ALERT AND ORIENTED X 1 - EYES OPEN. NO S/SX OF PAIN AT THIS TIME. CONTINUES ON O2 5L VIA NC WITH NO S/SX OF RESPIRATORY DISTRESS NOTED. IV ACCESS TO LEFT UPPER ARM MIDLINE #18G INTACT AND PATENT. CONTINUES ON IVF D5W @ 100ML/HR. NG TUBE TO LEFT NARE INTACT WITH NEPRO RUNNING AT 50ML/HR. NO RESIDUAL NOTED AT THIS TIME. TELE MONITOR IN PLACE READING SR/A-PACING HR 70. CALL LIGHT WITHIN REACH. ASPIRATION, FALL AND SAFETY PRECAUTIONS MAINTAINED. WILL CONTINUE TO MONITOR.
[2021-07-22 20:00] VITALS: BP 119/71
[2021-07-22] MEDS: ENOXAPARIN SODIUM 40 MG/0.4 ML DISP.SYRIN SQ SCH (20:55)
[2021-07-23] VITALS: BP 102/60
[2021-07-23] MEDS: NEPRO 1,000 ML BOTTLE NG SCH (03:17)
[2021-07-23 04:00] VITALS: BP 114/66
[2021-07-23] MEDS: METOPROLOL TARTRATE 50 MG TABLET NG SCH ×3 (05:41→12:00)
[2021-07-23] MEDS: IV D5W 1,000 ML IV SCH (06:02)
--- NOTE | 2021-07-23 06:20 | NUR ---
TELE/RN CLOSING NOTE PATIENT CURRENTLY RESTING IN BED. ALERT AND ORIENTED X 1 - EYES OPEN. NO S/SX OF PAIN AT THIS TIME. CONTINUES ON O2 5L VIA NC WITH NO S/SX OF RESPIRATORY DISTRESS NOTED. IV ACCESS TO LEFT UPPER ARM MIDLINE #18G INTACT AND PATENT. CONTINUES ON IVF D5W @ 100ML/HR. NG TUBE TO LEFT NARE INTACT WITH NEPRO RUNNING AT 50ML/HR. NO RESIDUAL NOTED AT THIS TIME. TELE MONITOR IN PLACE READING SR/A-PACING/PVCS HR 73. CALL LIGHT WITHIN REACH. ASPIRATION, FALL AND SAFETY PRECAUTIONS MAINTAINED. WILL ENDORSE PLAN OF CARE TO ONCOMING SHIFT.
--- NOTE | 2021-07-23 07:32 | NUR ---
TELE/RN OPENING NOTES PATIENT RESTING IN BED, A/O X1, EYES OPEN. NO S/SX OF PAIN AT THIS TIME. ON O2 5L VIA NC WITH NO S/SX OF RESPIRATORY DISTRESS NOTED. IV ACCESS ON SAMANTHA MIDLINE #18G INTACT AND PATENT. CONTINUES ON IVF D5W @ 100ML/HR. NG TUBE TO LEFT NARE INTACT WITH NEPRO RUNNING AT 50ML/HR. NO RESIDUAL NOTED AT THIS TIME. TELE MONITOR IN PLACE READING SR/A-PACING/PVCS HR 73. CALL LIGHT WITHIN REACH. ASPIRATION, FALL AND SAFETY PRECAUTIONS MAINTAINED. WILL CONTINUE TO MONITOR.
[2021-07-23 08:00] VITALS: BP 138/81
[2021-07-23 08:14] LABS: HEMATOCRIT 26 % (39-51); HEMOGLOBIN 8.5 g/dL (13.5-17.5); MEAN CORPUSCULAR HGB CONC 33 g/dl (31.0-36.0); MEAN CORPUSCULAR VOLUME 111 fL (80-96); PLATELET COUNT (AUTO) 55 K/uL (150-450); RED BLOOD CELL COUNT(AUTO) 2.32 MIL/uL (4.5-6.0); WHITE BLOOD COUNT (AUTO) 7.1 K/uL (4.3-11.0)
[2021-07-23] MEDS: PANTOPRAZOLE 40 MG/PACK PACK NG SCH (08:16)
[2021-07-23] MEDS: ACYCLOVIR 200 MG CAPSULE NG SCH ×2 (08:16→16:44)
[2021-07-23] MEDS: DEXAMETHASONE SOD PHOSPHATE 10 MG/ML VIAL IV SCH (08:16)
[2021-07-23] MEDS: FLUCONAZOLE (100 MG) 100 MG TABLET NG SCH (08:16)
[2021-07-23 08:21] LABS: CALCIUM, SERUM 9.1 mg/dL (8.5-10.1); CARBON DIOXIDE 18 mmol/L (21-32); CHLORIDE 116 mmol/L (98-107); CREATININE 1.4 mg/dL (0.6-1.3); GLUCOSE 313 mg/dL (74-106); SODIUM SERUM 148 mmol/L (136-145); UREA NITROGEN, BLOOD 60 mg/dL (7-18)
[2021-07-23] MEDS: AMIODARONE HCL 200 MG TABLET NG SCH ×3 (08:22→16:44)
[2021-07-23] MEDS: LEVOFLOXACIN (250MG) 250 MG TABLET NG SCH (09:24)
[2021-07-23 16:44] VITALS: BP 129/79
--- NOTE | 2021-07-23 18:58 | NUR ---
CAKE PUNCHER NOTES PATIENT DISCHARGE TO [facility] NICHOLAS IN STABLE CONDITION. VITAL SIGNS TAKEN, STABLE AND RECORDED. WITH NGTUBE ON LEFT NARES, INTACT AND PATENT, PLACEMENT CHECKED. ALSO WITH F/C INTACT AND PATENT, DRAINED 1500ML HASEEB COLORED URINE. ALL BELONGINGS ACCOUNTED FOR. BODY ASSESSMENT DONE, SKIN GENERALLY INTACT. REPORT GIVEN TO CHARLEEN FROM [facility]. PATIENTS NORMA AWARE OF DISCHARGE. EXITCARE FOLDER GIVEN TO AMBULANCE STAFF. PATIENT LEFT UNIT @1855 P/U VIA GURNEY BY 2 EMT FROM [facility]. CN AWARE OF DISCHARGE.
[2021-07-23 19:32] LABS: BAND % (MANUAL) 4 % (0.0-5.0); LYMPHOCYTES % (MANUAL) 19 % (16-48); MONOCYTES % (MANUAL) 49 % (0-11.0); NEUTROPHILS % (MANUAL) 25 (42-76)
== END 2021-07-23 19:00 | disposition short-term general hospital (02) | DRG 177 ==
LOC: ER 22:20 → TRANSITION 07-08 03:32 → TELE2 07-08 16:46
PROVIDERS: ADMIT Nurse Practitioner Acute Care; ATTEND Internal Medicine
PROC: 05HC33Z Insertion of Infusion Device into Left Basilic Vein, Percutaneous Approach (ICD-10-PCS; 2021-07-10)
PROC: 009U3ZX Drainage of Spinal Canal, Percutaneous Approach, Diagnostic (ICD-10-PCS; 2021-07-11)
PROC: XW033E5 Introduction of Remdesivir Anti-infective into Peripheral Vein, Percutaneous Approach, New Technology Group 5 (ICD-10-PCS; principal; 2021-07-13)
DX: U07.1 COVID-19 (principal); G93.41 Metabolic encephalopathy; J96.01 Acute respiratory failure with hypoxia; N17.0 Acute kidney failure with tubular necrosis; E87.1 Hypo-osmolality and hyponatremia; E44.0 Moderate protein-calorie malnutrition; C92.00 Acute myeloblastic leukemia, not having achieved remission; D61.818 Other pancytopenia; E87.0 Hyperosmolality and hypernatremia; I69.354 Hemiplegia and hemiparesis following cerebral infarction affecting left non-dominant side; J90 Pleural effusion, not elsewhere classified; E88.09 Other disorders of plasma-protein metabolism, not elsewhere classified; Z20.822 Contact with and (suspected) exposure to COVID-19; D53.9 Nutritional anemia, unspecified; E83.51 Hypocalcemia; E86.0 Dehydration; E86.1 Hypovolemia; G93.89 Other specified disorders of brain; I67.2 Cerebral atherosclerosis; Z95.810 Presence of automatic (implantable) cardiac defibrillator; R13.10 Dysphagia, unspecified; Z93.1 Gastrostomy status; Z79.899 Other long term (current) drug therapy; Z86.61 Personal history of infections of the central nervous system; Z86.19 Personal history of other infectious and parasitic diseases
CPT/HCPCS: 36415; 62270; 70450-TC; 71045-TC; 71250-TC; 80048-TC; 80053-TC; 80061-TC; 80076-TC; 80202-TC; 81001; 82140-TC; 82533; 82728-TC; 83540-TC; 83605-TC; 83735-TC; 83880; 84100-TC; 84439-TC; 84443-TC; 84484-TC; 84550-TC; 85025-TC; 85378-TC; 85396; 85610-TC; 85730-TC; 86140-TC; 86592; 86694; 86706; 87040-TC; 87070-TC; 87081-TC; 87102-TC; 87116; 87206; 87340; 87806; 87899; 89051-TC; 93307-TC; 95819-TC; 97116-TC; 97530-TC; A4216; A4349; C9113; G0378; J0692; J1100; J1447; J1630; J1650; J1940; J2060; J2248; J2405; J3370; J3490; J7030; J7042; J7050; J7060; J7070; P9047; U0003